=== PATIENT | female | born 1975 | race Caucasian/White ===

== ENCOUNTER 2021-04-30 09:59 | Emergency (ER) | payer OTHER, SELFPAY ==
[2021-04-30 10:09] VITALS: BP 95/50; PULSE 90; RESP 17; TEMP 36.6; O2SAT 99
--- NOTE | 2021-04-30 11:41 | ED.FEMALEGU ---
HPI - Female Genitourinary General Chief complaint: Abdominal Pain Stated complaint: abd pain Time Seen by Provider: 04/30/21 11:41 Source: patient Mode of arrival: ambulatory Limitations: no limitations History of Present Illness HPI Narrative: Ally Sahu is a 45 yo female who comes to express care with lower abdominal pain, R flank -discomfort. She states that her nephew this last week and so things been stressful she has been eating and now she finds it difficult to eat. she is constipated and has had no nausea vomiting or diarrhea, no fever Related Data Home Medications Medication Instructions Recorded Confirmed alprazolam 1 mg PO BID PRN 04/30/21 04/30/21 Allergies Allergy/AdvReac Type Severity Reaction Status Date / Time No Known Allergies Allergy Verified 04/30/21 10:33 Review of Systems Review of Systems: Narrative: CONSTITUTIONAL: Denies fever, chills, sweats. EYES: Denies visual changes, redness, discharge. ENT: Denies rhinorrhea, congestion, sore throat, otalgia. CARDIOVASCULAR: Denies chest pain, palpitations, edema. RESPIRATORY: Denies dyspnea, wheezing, cough GASTROINTESTINAL: Denies abdominal pain, nausea, vomiting, diarrhea. Right flank pain GENITOURINARY: Denies dysuria, hematuria, abnormal discharge SKIN: Denies rash or itching. NEUROLOGIC: Denies numbness, or focal weakness. PSYCHIATRIC: Denies anxiety or depression. [facility] Family History Family History Other Heart disease Social History Social History Smoking status: Former smoker Alcohol intake: current Exam Narrative: Exam Narrative: GENERAL: This is a well-nourished, well-developed patient, in mild distress. HEAD: normocephalic, atraumatic. EYES: Sclera clear/white. Vision is grossly intact. EARS: External ears normal, . Hearing grossly intact. NOSE: External nose normal without nasal discharge, nares without redness, no rhinorrhea. THROAT: Mucous membranes moist, NECK: Neck supple, non-tender CARDIOVASCULAR: Regular rate and rhythm without murmurs, gallops, or rubs. RESPIRATORY: Clear to auscultation. Breath sounds equal bilaterally. No wheezes, rales, or rhonchi. GASTROINTESTINAL: Abdomen soft, SKIN: warm, intact with no suspicious lesions or rash, good texture and turgor. NEURO: awake, alert, and oriented to person, place and time. There were no obvious focal neurologic abnormalities. Steady gait EXTREMITIES: Normal range of motion. BACK: Nontender without deformity Course Course Emergency Course: Patient comes to [facility] with right flank pain and also lower abdominal pain although she admits that she is constipated x1 week and has been unable to eat due to nephew's and has been drinking milk supplements Started on Colace and single dose of MiraLAX for constipation UA dipstick showed 1+ leukocytes and blood started on cephalexin. Told that if she develops nausea vomiting diarrhea and fever she is to go to the emergency room for further work-up as his symptoms could also be other diagnoses Vital Signs Vital signs: Vital Signs Temperature 97.9 F 04/30/21 10:09 Pulse Rate 90 04/30/21 10:09 Respiratory Rate 17 04/30/21 10:09 Blood Pressure 95/50 L 04/30/21 10:09 Pulse Oximetry 99 04/30/21 10:09 Temperature 97.9 F 04/30/21 10:09 Pulse Rate 90 04/30/21 10:09 Respiratory Rate 17 04/30/21 10:09 Blood Pressure 101/62 04/30/21 12:30 Pulse Oximetry 99 04/30/21 10:09 MDM - Female Genitourinary Differential Diagnosis Differential diagnosis: Likely urinary tract infection, cervicitis, vaginitis, cystitis and other (Right flank pain) Lab Data Labs: Urine Glucose Negative Reference Range: Negative Urine Bilirubin Negative Reference
[2021-04-30 12:30] VITALS: BP 101/62
== END 2021-04-30 12:32 | disposition home or self-care (01) ==
PROVIDERS: Emergency Provider Nurse Practitioner
DX: N30.01 Acute cystitis with hematuria (principal); K59.00 Constipation, unspecified
CPT/HCPCS: 81003; 87077; 87086; 87088; 87186; 99213; G0463

== ENCOUNTER 2021-10-22 10:18 | Outpatient (CLI) | payer BC, SELFPAY ==
--- NOTE | ~2021-10-22 | MR_ITS ---
EXAMINATION: MR cervical spine wo con EXAM DATE: 10/22/2021 11:31 INDICATION: Cervical radiculopathy, chronic neck pain. Bilateral arm pain. TECHNIQUE: Multi-sequential, multiplanar MR images of the cervical spine were obtained without contra st. Axial T2, axial T2 MERGE sequence. Sagittal T1, T2, T2 fat saturation images also obtained. Th ere is no prior study for comparison. FINDINGS: There is moderate loss of the C5-6 disc height, mild at the 2 contiguous levels. The spina l cord signal intensity and intrinsic morphology is normal. Cervicomedullary junction is normal in ap pearance. The vertebral bodies are aligned in the AP dimension. There are no suspicious marrow signal abnormalities. Paraspinal soft tissue is unremarkable. Level by level evaluation: C2-C3: Disc does not extend beyond the endplate margin. Uncovertebral joint arthropathy: None. Facet joint arthropathy: Mild bilateral. Neural foraminal stenosis: No stenosis. Central canal stenosis: No stenosis. C3-C4: Disc does not extend beyond the endplate margin. Uncovertebral joint arthropathy: Mild left. Facet joint arthropathy: Mild bilateral. Neural foraminal stenosis: No stenosis. Central canal stenosis: No stenosis. C4-C5: There is a minimal diffuse disc bulge. Uncovertebral joint arthropathy: Mild to moderate bilateral. Facet joint arthropathy: Mild bilateral. Neural foraminal stenosis: Mild to moderate right, mild left. Central canal stenosis: No stenosis. C5-C6: There is a mild diffuse disc bulge. Uncovertebral joint arthropathy: Moderate bilateral. Facet joint arthropathy: Mild to moderate bilateral. Neural foraminal stenosis: Moderate left, mild right. Central canal stenosis: No stenosis. C6-C7: There is a minimal diffuse disc bulge. Uncovertebral joint arthropathy: Mild to moderate bilateral. Facet joint arthropathy: Mild bilateral. Neural foraminal stenosis: Mild left. Central canal stenosis: No stenosis. C7-T1: Disc does not extend beyond the endplate margin. Uncovertebral joint arthropathy: None. Facet joint arthropathy: None. Neural foraminal stenosis: No stenosis. Central canal stenosis: No stenosis. IMPRESSION: 1. Mild to moderate midcervical spondylosis. Reviewed, dictated and finalized at location A. TER MANAGER
--- NOTE | ~2021-10-22 | MR_ITS ---
EXAMINATION: MR lumbar spine wo con EXAM DATE: 10/22/2021 11:31 INDICATION: Lumbar radiculopathy . Chronic low back pain. TECHNIQUE: Multi-sequential, multiplanar MR images of the lumbar spine were obtained without contrast . Sagittal T1, T2, T2 fat saturation images. Axial T2 weighted images. There is no prior study for comparison. FINDINGS: There is mild to moderate disc disease L2-L4, mild at the other thoracolumbar levels. The c onus medullaris terminates at the L1-2 level and has normal signal intensity and morphology. There a re no suspicious marrow signal abnormalities. There is 2 mm retrolisthesis L2 on L3, L3 on L4 and L4 on L5. Paraspinal soft tissue is unremarkable. Level by level evaluation: T12-L1: Disc does not extend beyond the endplate margin. Facet arthropathy: None. Neural foraminal stenosis: No stenosis. Central canal stenosis: No stenosis. L1-L2: Disc does not extend beyond the endplate margin. Facet arthropathy: Mild. Neural foraminal stenosis: No stenosis. Central canal stenosis: No stenosis. L2-L3: There is a mild diffuse disc bulge. Facet arthropathy: Mild. Neural foraminal stenosis: No stenosis. Central canal stenosis: No stenosis. L3-L4: There is a mild diffuse disc bulge. Facet arthropathy: Mild. Neural foraminal stenosis: No stenosis. Central canal stenosis: No stenosis. L4-L5: There is a mild diffuse disc bulge. Facet arthropathy: Mild to moderate. Neural foraminal stenosis: Mild to moderate right, mild left. Central canal stenosis: No stenosis. L5-S1: There is a mild diffuse disc bulge. Facet arthropathy: Mild to moderate. Neural foraminal stenosis: Mild bilateral. Central canal stenosis: No stenosis. IMPRESSION: 1. Mild to moderate lumbar spondylosis. Reviewed, dictated and finalized at location A. ATIC AGENT
== END 2021-10-22 10:19 ==
PROVIDERS: Visit Provider Nurse Practitioner Adult Health
DX: M47.23 Other spondylosis with radiculopathy, cervicothoracic region (principal); M48.03 Spinal stenosis, cervicothoracic region; M47.25 Other spondylosis with radiculopathy, thoracolumbar region; M48.05 Spinal stenosis, thoracolumbar region
CPT/HCPCS: 72141; 72148

== ENCOUNTER 2023-05-05 12:37 | Outpatient (CLI) | payer BC, OTHER, SELFPAY ==
[2023-05-05 14:45] LABS: Thyroid Stimulating Hormone 0.816 uIU/mL (0.465-4.680)
[2023-05-09 17:16] LABS: FSH 5.6 mIU/mL (***)
[2023-05-11 20:12] LABS: Estradiol, Ultrasensitive 92 pg/mL
== END 2023-05-05 12:38 | disposition home or self-care (01) ==
PROVIDERS: Visit Provider Student in an Organized Health Care Education/Training Program
DX: N91.2 Amenorrhea, unspecified (principal)
CPT/HCPCS: 36415; 82670; 83001; 84443

== ENCOUNTER 2023-10-05 08:05 | Emergency (ER) | payer BC, OTHER, SELFPAY ==
--- NOTE | ~2023-10-05 | XR_ITS ---
XR knee RT min 4V 10/05/2023 10:50 INDICATION: Right knee pain and swelling PROCEDURE: 4 views right knee COMPARISON: No prior studies for comparison. FINDINGS: Fracture, dislocation or subluxation is not identified. Moderate joint effusion. The soft t issues appear within normal limits. No foreign bodies are identified. IMPRESSION: 1: No acute fracture. 2: Moderate effusion. Reviewed, dictated and finalized at location B. OR SVP
--- NOTE | ~2023-10-05 | US_ITS ---
EXAMINATION: US venous doppler LE RT DATE: 10/05/2023 10:18 INDICATION: Right calf pain and edema. TECHNIQUE: Grayscale ultrasound images without and with compression and Doppler ultrasound images of the right lower extremity veins were obtained. COMPARISON: None. FINDINGS: The visualized portions of right common femoral vein, profunda (deep) femoral vein, femoral vein, pop liteal vein, peroneal veins, posterior tibial veins, and greater saphenous vein outflow are patent. IMPRESSION: 1. No deep venous thrombosis. Reviewed, dictated and finalized at location E. ORM MAKER
[2023-10-05 08:07] VITALS: BP 122/66; PULSE 98; RESP 16; TEMP 36.6; O2SAT 98
--- NOTE | 2023-10-05 09:35 | ED.LOWEXIN ---
HPI - Extremity Injury (Lower) General Chief Complaint: Extremity Injury, Lower Stated Complaint: right knee injury Time Seen by Provider: 10/05/23 10:07 Source: patient Mode of arrival: wheelchair Limitations: no limitations History of Present Illness HPI Narrative: This is a 48 year old female that presents to the ER for right knee pain. Ongoing over the last month. Reports she has injured it twice. Originally she had fallen right onto her knee cap. The second injury she missed a step and stepped down onto it real hard. Reports worsening swelling which prompted her to be seen. Denies decreased ROM or numbness. Related Data Allergies Allergy/AdvReac Type Severity Reaction Status Date / Time No Known Allergies Allergy Verified 10/05/23 08:10 Review of Systems Review of Systems: CONSTITUTIONAL: Denies fever MUSCULOSKELETAL: Reports joint pain, and myalgia. NEUROLOGIC: Denies numbness, or weakness. All systems reviewed & are unremarkable except as noted in HPI and below PMFSH Past Medical History Medical History Anxiety Screening for breast cancer Surgical History Surgical History H/O tubal ligation History of bunionectomy Family History Family History Grandparent Heart disease Father Hypertension Social History Social History Smoking status: Former smoker Alcohol intake: current Substance use: never Lack of Transportation: No Lack of Food: Never True Current Housing: I Have Housing Concerned About Future Housing: No Difficulty Paying Gas/Electric Bills: No Difficulty Paying for Meds: No Currently Unemployed: No Education: High School Diploma/GED Difficulty w/ Childcare or Family Care: No Living arrangements: other Additional living arrangements comments: , children and mother Occupation/Education: occupation Gender identity (if verbalized by the patient): Female Sexual Orientation (if Verbalized by the Patient): Straight or Heterosexual Exam Narrative: GENERAL: Well-appearing, well-nourished, and in no acute distress. HEAD: Normocephalic, atraumatic. EYES: EOMI. CHEST: No respiratory distress. HEART: Regular rate EXTREMITIES: Normal range of motion. Mild edema about the right knee anteriorly and into the lower leg. No erythema or warmth. Normal DP pulse. Normal sensation SKIN: Warm, dry, no rash. NEURO: No focal deficits. Alert and oriented x3. PSYCH: Normal mood and affect Course Course Emergency Course: Patient and family updated on workup and agree with plan of care Vital Signs Vital signs: Vital Signs Temperature 97.8 F 10/05/23 08:07 Pulse Rate 98 10/05/23 08:07 Respiratory Rate 16 10/05/23 08:07 Blood Pressure 122/66 10/05/23 08:07 Pulse Oximetry 98 10/05/23 08:07 Oxygen Delivery Room Air 10/05/23 08:07 Temperature 97.8 F 10/05/23 08:07 Pulse Rate 98 10/05/23 08:07 Respiratory Rate 16 10/05/23 08:07 Blood Pressure 122/66 10/05/23 08:07 Pulse Oximetry 98 10/05/23 08:07 Oxygen Delivery Room Air 10/05/23 08:07 Procedures Orthopedic Splinting/Casting Injury #1: Splinting/Casting Date: 10/05/23 Splinting/Casting Time: 11:04 Side: right Lower Extremity Injury Location: knee Lower Extremity Immobilizer: knee immobilizer Splint: prefabricated Pre-Formed: knee immobilizer Pre-Procedure Neuro Vascular Exam: normal Post-Procedure Neuro Vascular Exam: normal Other Orthopedic Equipment: crutches MDM - Extremity Injury (Lower) MDM Narrative Medical decision making narrative: MSE performed by DELL in triage Patient presents to the emergency department for right knee pain ongoing over the last beti
== END 2023-10-05 11:29 | disposition home or self-care (01) ==
PROVIDERS: Emergency Provider Physician Assistant
DX: M23.91 Unspecified internal derangement of right knee (principal); W19.XXXA Unspecified fall, initial encounter; Z87.891 Personal history of nicotine dependence
CPT/HCPCS: 73564; 93971; 99284

== ENCOUNTER 2024-04-30 13:39 | Outpatient (CLI) | payer BC, OTHER, SELFPAY ==
--- NOTE | 2024-04-30 15:46 | ECG_ITS ---
Test Date: 2024-04-30 16:02:55 Measurements Intervals [place] Rate: 68 P: 40 ID: [id number] QRS: 21 QRSD: 88 T: 13 QT: 429 QTc: 459 Interpretive Statements SINUS RHYTHM CANNOT R/O SEPTAL INFARCT, AGE INDETERMINATE BORDERLINE ST-T WAVE ABNORMALITY- INFERIOR LEADS BASELINE ARTIFACT- I, II, III, AVR, AVL, AVF ABNORMAL ECG No previous ECG available for comparison Electronically Signed On 04-30-2024 16:56:49 CDT by Antoine Carter D.O.
[2024-04-30 16:20] LABS: Basophils Absolute Auto 0.1 K/mm3 (0.0-0.1); Basophils Percent Auto 0.9 % (0.2-1.2); Eosinophils Absolute Auto 0.2 K/mm3 (0-0.3); Eosinophils Percent Auto 2.7 % (0-4.4); Hematocrit 39.5 % (37.0-47.0); Immature Granulocyte Absolute 0.02 K/mm3 (0.00-0.031); Immature Granulocyte Percent A 0.3 % (0-0.5); Lymphocytes Absolute Auto 2.56 K/mm3 (0.9-3.2); Lymphocytes Percent Auto 36.6 % (18.3-44.2); Mean Corpuscular HGB Conc 32.9 g/dl (32-36); Mean Platelet Volume 10.4 fl (7.4-10.4); Monocytes Absolute Auto 0.8 K/mm3 (0.1-0.6); Monocytes Percent Auto 10.7 % (2.6-8.5); Neutrophils Absolute Auto 3.4 K/mm3 (1.3-6.7); Neutrophils Percent Auto 48.8 % (45.5-73.1); Platelet Count Result 352 k/mm3 (150-375); Red Cell Distribution Width 13.9 % (11.5-14.5)
[2024-04-30 16:27] LABS: Appearance Urine Clear (Clear); Bacteria Urine None Seen /hpf; Bilirubin Urine Negative (Negative); Blood Urine 2+ (Negative); Color Urine Yellow (Yellow); Glucose Urine UA Negative (Negative); Ketones Urine Negative (Negative); Leukocyte Esterase Ur Negative LEU/UL (Negative); Nitrate Urine Negative (Negative); Non Pathogenic Casts 0-2; Protein Urine Negative (Negative); RBC Urine 0-2 /hpf (0-2); Specific Grav Ur 1.007 (1.001-1.035); Squamous Epithelial Cell Urine None Seen /hpf (Few); Urobilinogen Urine 0.2 mg/dL (<2.0); WBC Urine 0-5 /hpf (0-3)
[2024-04-30 16:30] LABS: Urine Cotinine NEGATIVE
[2024-04-30 16:31] LABS: Alanine Aminotransferase 22 U/L (6-35); Albumin Level 4.7 g/dL (3.5-5.1); Alkaline Phosphatase 66 U/L (38-126); Anion Gap 8 mmol/L (4-12); Aspartate Amino Transferase 27 U/L (14-36); Bilirubin,Total 0.4 mg/dL (0.2-1.3); Blood Urea Nitrogen 10 mg/dL (7-17); Calcium 9.3 mg/dL (8.4-10.2); Carbon Dioxide 29 mmol/L (22-30); Chloride 100 mmol/L (98-107); Estimated Glomerular Filt Rate > 60; Glucose 82 mg/dL (65-110); Potassium 3.7 mmol/L (3.4-5.0); Sodium 137 mmol/L (137-145)
[2024-04-30 16:45] LABS: Hemoglobin A1C 5.4 % (<5.7)
[2024-04-30 16:47] LABS: Add Urine Microscopic? YES
== END 2024-04-30 13:40 | disposition home or self-care (01) ==
LOC: ANHSURGERY 13:48
PROVIDERS: PCP Registered Nurse; Visit Provider Orthopaedic Surgery
DX: Z01.818 Encounter for other preprocedural examination (principal); M16.12 Unilateral primary osteoarthritis, left hip; R94.31 Abnormal electrocardiogram [ECG] [EKG]; Z79.899 Other long term (current) drug therapy
CPT/HCPCS: 36415; 80053; 80307; 81001; 83036; 85025; 87081; 93005

== ENCOUNTER 2024-05-03 08:47 | Outpatient (CLI) | payer BC, OTHER, SELFPAY ==
[2024-05-03 10:19] LABS: Cholesterol 197 mg/dL (0-200); HDL Direct 63 mg/dL; Triglycerides 114 mg/dL (<150)
[2024-05-03 10:30] LABS: LDL Cholesterol Direct 93 mg/dL
[2024-05-03 11:01] LABS: Vitamin D 25 Hydroxy 37.7 ng/mL
[2024-05-05 11:04] LABS: TSH QUEST 1.69 mIU/L
== END 2024-05-03 08:48 | disposition home or self-care (01) ==
PROVIDERS: PCP Registered Nurse; Visit Provider Registered Nurse
DX: Z79.899 Other long term (current) drug therapy (principal)
CPT/HCPCS: 36415; 80061; 82306; 84481; 86376

== ENCOUNTER 2024-05-22 01:47 | Day surgery (SDC) | payer BC, OTHER, SELFPAY ==
[2024-04-30 14:05] VITALS: BMI 29.2
--- NOTE | 2024-04-30 14:39 | PC.NURSE ---
Report to the Outpatient Waiting Room, entrance under the green pavilion located off [facility], at time __6:00 AM on date _05/22/24 . Planned Procedure Time: _7:30 AM . Time changes happen often and if your time is changed the preop area will call you the afternoon before. - You and your visitor will be asked to self-screen and do not enter if you have any COVID symptoms. - A mask is optional within the hospital at this time. Patients may have clear liquids (water, carbonated beverages, clear teas, apple juice) until 3 hours prior to surgery ( 4:30 AM)with a maximum of 20 ounces. - No food from midnight until time of surgery - Infants may have breast milk until 4 hours before surgery, infant formula 6 hours prior to surgery. - Children will be allowed to drink immediately following surgery. If applicable, please bring a bottle or sippy cup to assist with drinking. Juice, water, soda, and popsicles are readily available. For infants on formula, please bring formula the day of surgery. Pacifiers are allowed. Take the following medications with a SIP of water the morning of surgery: __NONE DO NOT STOP ANY OF YOUR OTHER PRESCRIPTION MEDICATIONS PRIOR TO SURGERY ?EXCEPT THE FOLLOWING Medications to discontinue per physician __HOLD DICLOFENAC , IBUPROFEN AND ALL VITAMINS AND SUPPLEMENTS 7 DAYS PRE OP PER DR DAVIS .LAST DOSE 05/14/24 MAY TAKE TYLENOL IF NEEDED FOR PAIN Please no make-up, nail kinyarwanda, hairspray, perfume, deodorant, or body powder the day of surgery. No jewelry (including any body piercings) or valuables the day of surgery, leave them at home. Please take a shower or bath the night before, or the morning of, surgery with an antibacterial soap. Wear comfortable, loose fitting clothing. Children are encouraged to wear pajamas. - Jewelry must be removed prior to entering the operating room. Rings and piercings that are not removed may be cut off. - The hospital will not accept responsibility for valuables. - Please leave all valuables, including medications, at home the day of surgery. If you are going home after surgery, a licensed automation driver must drive you home. - NO public transportation without another adult if you receive anesthesia. - We recommend that an adult stay with you for 24 hours following discharge. - We also recommend that you do not drive, make important decision, drink alcoholic beverages, or take any drugs that were not prescribed by your health care provider for at least 24 hours after your discharge time. Follow any additional instructions given to you from your surgeon. If you or anyone in your household have experienced Covid symptoms in the past week, please notify your surgeon or the nurse liaison at the phone number below for possible testing. VERBAL AND WRITTEN instructions given to ____PATIENT and asked if any additional questions and then verbalized understanding. Patient advised to call surgeon office or pre surgery nurse liaison [phone] if any additional questions.
[2024-04-30 15:32] VITALS: BP 123/80; PULSE 65; RESP 18; TEMP 36.6; O2SAT 98
--- NOTE | 2024-05-21 08:01 | PM.IMHP ---
H&P: HPI History of Present Illness Date/Time: 05/21/24 08:01 Chief Complaint: Left hip DJD Narrative: 48-year-old female who presents today for a left anterior total hip arthroplasty. Patient has been having symptoms for several years in both of her hips. The pain in the left hip is predominantly in the lateral aspect of the hip and also through the groin. She has difficulty bearing weight on the leg at times. By the end of the day she is having rather severe pain in both of her hips. She has been on diclofenac 75 mg b.i.d.. Patient has severe osteoarthritis in both hips, the left hip there is flattening of the femoral head. At this point patient feels she is ready proceed with total hip arthroplasty rather than continue nonsurgical treatment Review of Systems Review of Systems: All systems reviewed & are unremarkable except as noted in HPI and below PMFSH Past Medical History Medical History Anxiety Screening for breast cancer Surgical History Surgical History H/O tubal ligation History of bunionectomy Family History Family History Grandparent Heart disease Father Hypertension Diabetes mellitus Heart disease Social History Social History (Updated 04/02/24 @ 15:38 by Belkis Serrano CMA) Smoking packs per day: 1 Smoking cigarettes per day: 20.0 Years smoked: 25 Smoking pack-years: 25.00 Smoking status: Former smoker Tobacco type: cigarettes Smoking end date: 10/10/15 Additional smoking assessment comments: DENIES ANY FORM OF TOBACCO USE Alcohol intake: current Drinks per week: 8 Alcohol use details: occasionally Substance use: never Do You Feel Safe in your Home?: Yes Lack of Transportation: No Lack of Food: Never True Current Housing: I Have Housing Concerned About Future Housing: No Difficulty Paying Gas/Electric Bills: No Difficulty Paying for Meds: No Currently Unemployed: No Education: High School Diploma/GED Difficulty w/ Childcare or Family Care: No Living arrangements: with family Additional living arrangements comments: , children and mother Occupation/Education: occupation 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 Gender identity (if verbalized by the patient): Female Sexual Orientation (if Verbalized by the Patient): Straight or Heterosexual Spiritual care concerns: No Meds Home Medications and Allergies Home Medications Medication Instructions Recorded Confirmed Type ibuprofen 200 mg capsule 400 mg PO Q6H PRN Pain 02/06/24 04/30/24 History acetaminophen 325 mg capsule 325 mg PO PRN PRN Pain 04/30/24 04/30/24 History (Tylenol) diclofenac sodium 75 mg 75 mg PO BID 04/30/24 04/30/24 History tablet,delayed release multivitamin with minerals 1 tablet PO DAILY 04/30/24 04/30/24 History (Hair,Skin and Nails tablet) Allergies Allergy/AdvReac Type Severity Reaction Status Date / Time morphine Allergy Vomiting Verified 04/30/24 14:06 Exam Narrative: 48-year-old female she is 5 ft 2 and 159 lb her BMI is 29.2. Her left hip range of motion is from 0-75 degrees. At 75? she has moderate pain across the groin and upper thigh. Internal rotation lacks 10? from neutral and external rotation is to 30. Internal rotation cause the same moderate pain across the groin and anterior thigh. She has normal abduction strength and no tenderness over the greater trochanter. 2+ dorsalis pedis pulse in both feet. No increased swelling in either lower extremity. Skin around the hip and groin crease are normal. Resp: Auscultation: clear to auscultation bilaterally Cardio: Rate: regular rate Rhythm: regular rhythm Assessment and Plan Assessment and plan (1) Primary osteoarthritis of both hips: Code(s):
[2024-05-22] VITALS (13 sets, daily range): BP systolic 99–120; BP diastolic 47–97; PULSE 69–104; RESP 12–18; TEMP 35.6–36.8; O2SAT 94–100
--- NOTE | ~2024-05-22 | XR_ITS ---
EXAMINATION: XR hip LT 1V w AP pelvis DATE: 05/22/2024 11:34 INDICATION: Left hip arthroplasty. Postop. TECHNIQUE: An anteroposterior view of the pelvis and single view of left hip were obtained. COMPARISON: Pelvis and hip radiograph 04/02/2024 FINDINGS: There is a total left hip arthroplasty in near-anatomic alignment. No fracture. 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 There is severe right hip osteoarthritis. IMPRESSION: 1. Total left hip arthroplasty in near-anatomic alignment. 2. Severe right hip osteoarthritis. Reviewed, dictated and finalized at location A.
--- NOTE | ~2024-05-22 | XR_ITS ---
EXAMINATION: XR surgery orthopedic DATE: 05/22/2024 11:34 INDICATION: Left total hip arthroplasty TECHNIQUE: Single frontal fluoroscopic image of the left hip was obtained during procedure performed by Dr. Osborn. Radiologist was not present for the imaging or procedure. The amount of fluoroscopy t laith used during this procedure was 1.0 minutes. COMPARISON: 04/02/2024 FINDINGS: Interval placement of a noncemented left total hip arthroplasty which appears well seated in near-erna tomic alignment on the single provided projection. No fracture. The acetabular component is affixed w ith at least a single screw. Expected lucent soft tissue gas at the operative bed. IMPRESSION: 1. Expected appearance during left total hip arthroplasty. See procedure note for further detail. Reviewed, dictated and finalized at location A. IMPRESSION: 1. Expected appearance during left total hip arthroplasty. See procedure note f or further detail.
[2024-05-22] MEDS: LACTATED RINGERS 1,000 ML 30 ML IV CONT ×3 (06:30→11:35)
[2024-05-22] MEDS: ACETAMINOPHEN 500 MG TABLET 1000 MG PO (06:35)
[2024-05-22] MEDS: TRANEXAMIC ACID 1,000MG/ISO100 1,000 MG/100 ML BAG 200 MG IVPB (06:36)
[2024-05-22] MEDS: VANCOMYCIN 1,250 MG/NS 250 ML BAG 166.67 MG IVPB (06:37)
--- NOTE | 2024-05-22 06:47 | WPDANESEPPF ---
Anes - Initial Pre Proc Eval Procedure: Operation Date: 05/22/24 07:30 Proposed Procedures p Left Total Hip Arthroplasty Anterior Approach - Dexter Osborn MD Date/Time: 05/22/24 06:47 Surgeon: Dexter Osborn MD Pre Op Diagnosis: oa left hip Patient Data Age: 48 Gender: F Height: 1.59 m Weight: 73.7 kg Last Vital Signs Temp 97.8 F 04/30/24 15:32 Pulse 65 04/30/24 15:32 Resp 18 04/30/24 15:32 BP 123/80 04/30/24 15:32 Pulse Ox 98 04/30/24 15:32 O2 Del Method Room Air 04/30/24 15:32 Allergies Allergy/AdvReac Type Severity Reaction Status Date / Time morphine Allergy Vomiting Verified 04/30/24 14:06 Home Medications Medication Instructions Recorded Confirmed Type ibuprofen 200 mg capsule 400 mg PO Q6H PRN Pain 02/06/24 04/30/24 History acetaminophen 325 mg capsule 325 mg PO PRN PRN Pain 04/30/24 04/30/24 History (Tylenol) diclofenac sodium 75 mg 75 mg PO BID 04/30/24 04/30/24 History tablet,delayed release multivitamin with minerals 1 tablet PO DAILY 04/30/24 04/30/24 History (Hair,Skin and Nails tablet) Laboratory Tests 05/22/24 06:23 Blood Type Pending Antibody Screen Pending Patient hx anesthesia problems: none Family hx anesthesia problems: none Results Review: All pre-operative results and documents have been reviewed as part of the pre-operative evaluation. [facility] Past Medical History Medical History Anxiety Screening for breast cancer Surgical History Surgical History H/O tubal ligation History of bunionectomy Family History Family History Grandparent Heart disease Father Hypertension Diabetes mellitus Heart disease Social History Social History Smoking packs per day: 1 Smoking cigarettes per day: 20.0 Years smoked: 25 Smoking pack-years: 25.00 Smoking status: Former smoker Tobacco type: cigarettes Smoking end date: 10/10/15 Additional smoking assessment comments: DENIES ANY FORM OF TOBACCO USE Alcohol intake: current Drinks per week: 8 Alcohol use details: occasionally Substance use: never Do You Feel Safe in your Home?: Yes Lack of Transportation: No Lack of Food: Never True Current Housing: I Have Housing Concerned About Future Housing: No Difficulty Paying Gas/Electric Bills: No Difficulty Paying for Meds: No Currently Unemployed: No Education: High School Diploma/GED Difficulty w/ Childcare or Family Care: No Living arrangements: with family Additional living arrangements comments: , children and mother Occupation/Education: occupation 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 ) Neurological: alert and oriented Last oral intake: >/= 8 hours ASA classification: II Emergent: no Anesthetic plan: proceed Anesthesia type and monitoring: general ETT and standard monitoring Results Review: All pre-operative results and documents have been reviewed as part of the pre-operative evaluation. Anxiety, ex smoker, by hx. Informed Consent: The patient's anesthetic plan and its attendant risks and benefits were discussed with the patient/family/POA. Questions were solicited and answers provided to the satisfaction of the patient/family/POA.
--- NOTE | 2024-05-22 07:15 | WPDHPUPDATE1 ---
History and Physical Update Update Date/Time: 05/22/24 07:15 History and Physical has been reviewed, including an updated exam of the patient. There are NO changes in the patient's condition. Risks, benefits, and alternatives have been discussed and questions answered. Patient agrees to proceed with procedure.
[2024-05-22] MEDS: SODIUM CHLORIDE 0.9% IV 38.7 ML, ROPivacaine HCL 1% 200 MG, KETOROLAC INJ (*BKC) 15 MG,... INFILTRATE (07:18)
[2024-05-22] MEDS: ceFAZolin SODIUM 1 GM VIAL 3 GM (07:18)
--- NOTE | 2024-05-22 07:25 | WPDHPUPDATE1 ---
History and Physical Update Update Date/Time: 05/22/24 07:25 We discussed that sometimes her right hip hurts more than her right, which includes pain right lower back and buttock and ant. lat right hip pain kathleen laying in bed. I do believe that her LPP and buttock pain is from her lower back which will not be addressed with hip replacement. I reviewed with her that she has bone on bone oa right hip as well which can be replaced 3 months from now and we can switch the order and do the right hip today instead of her left. She notes more pain with ROM left hip and xrays show oa left hip more advanced. She has decided to stay with plan to proceed with left JASPAL today and likely right hip JASPAL in 3 months.
[2024-05-22] MEDS: ceFAZolin 2 GM/D5W 50 ML 2 GM/50 ML BAG IVPB ×3 (07:46→22:59)
[2024-05-22] MEDS: TRANEXAMIC ACID 1,000 MG/10 ML AMPUL 1000 MG IV PUSH (10:59)
[2024-05-22] MEDS: ceFAZolin SODIUM 1 GM VIAL 2 GM IV PUSH (11:07)
[2024-05-22] MEDS: KETOROLAC 15 MG/ML VIAL (*BKC) IV PUSH ×3 (11:10→23:00)
--- NOTE | 2024-05-22 11:35 | W.PM.PROC2 ---
Procedure Note - Detailed Date of Procedure 05/22/24 Pre-op Diagnosis oa left hip Post-op Diagnosis Same Procedure Performed Left total hip arthroplasty Surgeon Dexter Osborn MD [employer] Safety [employer] [facility] Anesthesia General Description of Procedure Patient was brought to the operating room and general anesthesia was administered. She received 2 g of Ancef weight based vancomycin 1 g of tranexamic acid preoperatively. We did look at the right hip with an AP fluoro picture and it was unchanged compared with x-rays from March of 2024. The left hip was prepped draped usual fashion. A 10 cm longitudinal incision was made starting 3 cm lateral to the ASIS. Dissection was carried down to the fascia over the tensor fascia shahid which was exposed and longitudinally incised. This was elevated off the anterior 1/2 of the TFL muscle in interval between TFL and rectus femoris developed. Crossing branches of ascending lateral femoral circumflex vessels were ligated with suture divided. A retractor was placed over the anterior capsule the hip abducted internally rotated the gluteus minimus elevated off the lateral capsule. Inverted T capsulotomy was performed. Femoral neck osteotomy was performed and the femoral head was removed. It measured about 44 mm diameter. Had a very large peripheral osteophyte. The acetabulum was exposed labrum excised. The acetabular fossa was completely overgrown with osteophyte. Remaining cartilage from the anterior acetabulum wall was curetted. X-rays show that we could resect a little bit more bone from the femoral neck which was performed. We medialized with a 42 mm Reamer to the medial wall which allowed us to debride the fat pad from the acetabular fossa and we reamed up to 45 mm and then 246 mm which gave flesh reaming periphery of the posterior wall and anterior wall at the equator and the 46 trial was snug. Fluoro was utilized to assist with the acetabular preparation. Bone quality was very good. We chose the 46 emphasis Depuy cup which was impacted at 40? of abduction and anteversion such as the anterior edge of the cup was just to the anterior rim of the acetabulum. Excellent Press-Fit was achieved. A single screw was placed the ilium. Thirty-two inner diameter polyethylene liner was placed without difficulty and fully seated. The leg was externally rotated extended with table hook in place and this did not give us optimal exposure due to her very short femoral neck and the interval between conjoined tendon and piriformis was incised allowing the piriformis to flip and the conjoined tendon to recess. This gave us enough exposure. The proximal femur was prepared broaching up to a size 4. We countersunk this 2 level of the saddle laterally and trialed. With the 0.5 it was too tight with a 1.5 it was just a tiny bit tight. We obtained intraoperative fluoro AP pelvis which showed that the position of the broach was just a little higher than her preoperative plan. We could see that her intramedullary canal at the distal tip of the broach was narrow. I felt we could impact the stem broach another few mm and after we calcar planed we impacted the broach 3 more mm. There was excellent torsional stability of the broach in the canal. We trialed again and the 1.5 head ample shock but was stable and the 5 was a bit tight. Final calcar planing was carried out and the size 4 standard offset stem Actis was seated fully. There were no cracks visible. We trialed again with the 1.5 trial 32 mm head and again there was appropriate soft tissue tension and stability. The real ceramic 32 mm head 1.5 length was impacted on the clean and dry trunnion after thorough irrigation of the wound with Ancef solution. Hip was reduced stability reconfirmed. Local anesthetic cocktail was injected. 2. Vicryl was used to approximate the superior aspect of the are capsular arthrotomy. Fascia closed with running 1. Vicryl drain deep in the subcu skin closed with
[2024-05-22] MEDS: fentaNYL CITRATE INJ (*CRX) 100 MCG/2 ML VIAL 25 MCG IV PUSH ×4 (11:42→11:49)
--- NOTE | 2024-05-22 11:42 | PM.OP ---
Procedure Note - Brief Procedure Note - Brief Date of procedure: 05/22/24 oa left hip Procedure performed: Left anterior total hip arthroplasty Surgeon: ZOHRA Dueñas Findings: 48-year-old female who underwent left anterior total hip arthroplasty on 05/22. I was involved in the procedure including positioning the patient on the OR table in 1st assisting through the time surgery. Total time spent was 4 hours
[2024-05-22] MEDS: ONDANSETRON INJ 4 MG/2 ML VIAL IV PUSH ×2 (11:51→13:45)
[2024-05-22] MEDS: ACETAMINOPHEN 325 MG TABLET 650 MG PO ×3 (13:42→22:05)
[2024-05-22] MEDS: oxyCODONE HCL (*CRX) 5 MG TAB IR PO ×3 (13:42→22:05)
[2024-05-22] MEDS: SODIUM CHLORIDE 0.9% IV 1,000 ML 125 ML IV CONT (13:42)
--- NOTE | 2024-05-22 15:46 | ADMGEN ---
This patient, Ally Santos, was admitted to [facility] Surg Room 329-01. Patient/family oriented to hospital policies and general routines including ID bracelet, bed and alarms, visiting hours, pain management, procedures, bathroom and other care routines, personal items, smoking policy, room service/diet, and visiting hours. Information on how to activate the Rapid Response Team has been discussed. Patient/Family are encouraged to report perceived risks to care and to ask questions if they do not understand what they are told or what they should do.
--- NOTE | 2024-05-22 15:55 | PCPTNOTE ---
On 05/22/24, the student, [Karis Cooper], provided care and completed [facility] documentation on this patient. I have reviewed the student's documentation and agree with the findings.
[2024-05-22] MEDS: VANCOMYCIN 1,000 MG/NS 250 ML 1,000 MG/250 ML BAG 250 MG IVPB (17:45)
[2024-05-22] MEDS: SENNA/DOCUSATE SODIUM TABLET 2 TAB PO (17:45)
[2024-05-22] MEDS: FAMOTIDINE 20 MG TABLET PO (20:24)
[2024-05-23] MEDS: oxyCODONE HCL (*CRX) 5 MG TAB IR PO ×3 (02:08→09:09)
[2024-05-23] MEDS: ACETAMINOPHEN 325 MG TABLET 650 MG PO ×3 (02:08→09:09)
[2024-05-23 02:45] VITALS: BP 112/68; PULSE 81; RESP 14; TEMP 36.4; O2SAT 94
[2024-05-23] MEDS: VANCOMYCIN 1,000 MG/NS 250 ML 1,000 MG/250 ML BAG 250 MG IVPB (05:16)
[2024-05-23 05:59] VITALS: BP 106/64; PULSE 91; RESP 13; TEMP 36.5; O2SAT 94
[2024-05-23 06:18] LABS: Basophils Percent Auto 0.3 % (0.2-1.2); Eosinophils Percent Auto 0.1 % (0-4.4); Hemoglobin 8.9 g/dL (12.0-15.0); Immature Granulocyte Absolute 0.04 K/mm3 (0.00-0.031); Immature Granulocyte Percent A 0.4 % (0-0.5); Lymphocytes Absolute Auto 2.44 K/mm3 (0.9-3.2); Lymphocytes Percent Auto 22.5 % (18.3-44.2); Mean Corpuscular HGB Conc 31.8 g/dl (32-36); Mean Corpuscular Hemoglobin 30.5 pg (26-34); Mean Corpuscular Volume 95.9 fl (80-100); Mean Platelet Volume 10.5 fl (7.4-10.4); Monocytes Absolute Auto 1.1 K/mm3 (0.1-0.6); Monocytes Percent Auto 10.1 % (2.6-8.5); Neutrophils Absolute Auto 7.2 K/mm3 (1.3-6.7); Neutrophils Percent Auto 66.6 % (45.5-73.1); Platelet Count Result 221 k/mm3 (150-375); Red Blood Count 2.92 M/mm3 (4.2-5.4); Red Cell Distribution Width 13.6 % (11.5-14.5); White Blood Count 10.9 K/mm3 (4.5-10.0)
[2024-05-23 06:28] LABS: Anion Gap 5 mmol/L (4-12); Blood Urea Nitrogen 10 mg/dL (7-17); Carbon Dioxide 26 mmol/L (22-30); Chloride 105 mmol/L (98-107); Estimated CRCL calculation 92 ml/min; Estimated Glomerular Filt Rate > 60; Glucose 99 mg/dL (65-110); Potassium 3.9 mmol/L (3.4-5.0); Sodium 136 mmol/L (137-145)
--- NOTE | 2024-05-23 07:35 | PM.PNORT ---
Subjective Subjective Date/Time Seen: 05/23/24 07:35 Interval history: Postop day 1 patient is alert. She is afebrile vital signs are stable. Morning labs are noted. Hemoglobin 8.9. Patient is asymptomatic from this. Her drain is out. Dressing is dry and intact pain overall is well controlled. She was up walking yesterday with therapy in to the restroom multiple times overnight. Patient overall is doing well and is anxious to go home today. She will work with Physical therapy this morning and if she continues do well she will be discharged home following that. Objective Data Vital Signs Vital Signs: Vital Signs - 24 hr 05/22/24 11:35 05/22/24 11:45 05/22/24 11:50 Temperature 98.2 F Pulse Rate 104 H 90 Respiratory Rate 12 16 Blood Pressure 119/77 108/86 Pulse Oximetry 100 98 95 Oxygen Delivery Simple Face Mask Room Air Nasal Cannula Oxygen Flow Rate 8 2 05/22/24 12:00 05/22/24 12:15 05/22/24 12:30 Temperature Pulse Rate 87 82 75 Respiratory Rate 12 13 12 Blood Pressure 111/71 99/63 L 120/97 H Pulse Oximetry 95 99 96 Oxygen Delivery Nasal Cannula Nasal Cannula Nasal Cannula Oxygen Flow Rate 2 2 2 05/22/24 12:39 05/22/24 13:15 05/22/24 13:30 Temperature 96.0 F L 96.0 F L Pulse Rate 74 73 89 Respiratory Rate 13 18 16 Blood Pressure 111/73 100/72 102/69 Pulse Oximetry 96 96 98 Oxygen Delivery Nasal Cannula Oxygen Flow Rate 2 05/22/24 14:00 05/22/24 14:40 05/22/24 14:51 Temperature 96.0 F L 96.8 F L Pulse Rate 82 74 Respiratory Rate 16 18 Blood Pressure 111/65 114/58 L Pulse Oximetry 99 96 Oxygen Delivery Room Air Oxygen Flow Rate 05/22/24 16:09 05/22/24 22:15 05/23/24 02:45 Temperature 97.1 F L 97.6 F Pulse Rate 95 81 Respiratory Rate 13 14 Blood Pressure 111/47 L 112/68 Pulse Oximetry 94 94 Oxygen Delivery Room Air Oxygen Flow Rate 05/23/24 05:59 Temperature 97.7 F Pulse Rate 91 Respiratory Rate 13 Blood Pressure 106/64 Pulse Oximetry 94 Oxygen Delivery Oxygen Flow Rate Intake/Output Intake/Output: Intake & Output 08/11/24 08/12/24 08/13/24 08/14/24 23:59 23:59 23:59 23:59 Intake Total 2200 250 Output Total 75 Balance 2200 175 Meds/Results Medications: Active Medications Generic Name Dose Route Start Last Admin Trade Name Freq PRN Reason Stop Dose Admin Acetaminophen 650 mg 05/22/24 14:00 05/23/24 05:16 Acetaminophen 325 Mg Tablet PO 650 mg Q4H ANGELO Administration Apixaban 2.5 mg 05/23/24 09:00 Apixaban 2.5 Mg Tablet PO Q12HR ANGELO Cefdinir 300 mg 05/23/24 09:00 Cefdinir 300 Mg Capsule PO Q12HR ANGELO Celecoxib 200 mg 05/23/24 09:00 Celecoxib 200 Mg Capsule PO DAILY ANGELO Diphenhydramine HCl 25 mg 05/22/24 13:06 Diphenhydramine Hcl Inj 50 Mg/Ml Vial IV PUSH Q6H PRN Itching Famotidine 20 mg 05/22/24 21:00 05/22/24 20:24 Famotidine 20 Mg Tablet PO 20 mg Q12HR ANGELO Administration Hydromorphone HCl 0.5 mg 05/22/24 13:06 Hydromorphone Hcl Inj (*Crx) 1 Mg/Ml Syr IV PUSH Q2H PRN Breakthrough Pain Rated 4-6 or NPO Naloxone HCl 0.1 mg 05/22/24 13:06 Naloxone Hcl 0.4 Mg/Ml Vial IV PUSH Q2M PRN Opiate Reversal Ondansetron HCl 4 mg 05/22/24 13:06 05/22/24 13:45 Ondansetron Inj 4 Mg/2 Ml Vial IV PUSH 4 mg Q4H PRN Administration Nausea And Vomiting Oxycodone HCl 5 mg 05/22/24 14:00 05/23/24 05:16 Oxycodone Hcl (*Crx) 5 Mg Tab Ir PO 5 mg Q4H ANGELO Administration Oxycodone HCl 5 mg 05/22/24 13:06 Oxycodone Hcl (*Crx) 5 Mg Tab Ir PO Q4H PRN Pain Rated 7-10 Polyethylene Glycol 17 gm 05/23/24 09:00 Polyethylene Glycol 3350 17 Gm Powd.Pack PO QAM ANGELO Senna/Docusate Sodium 2 tab 05/22/24 17:00 05/22/24 17:45 Senna/Docusate Sodium Tablet PO 2 tab BID ANGELO Administration Radiology Results: ITS Impressions Hip/Pelvis X-Ray 05/22/24 12:02 IMPRESSION: 1.
[2024-05-23] MEDS: ceFAZolin 2 GM/D5W 50 ML 2 GM/50 ML BAG IVPB (07:39)
--- NOTE | 2024-05-23 08:25 | PM.DS ---
DS: Admitting Diagnosis Discharge Date 05/23 Admitting Diagnosis Left hip DJD DS: Discharge Diagnosis Discharge Diagnosis (1) Primary osteoarthritis of both hips: Code(s): M16.0 - Bilateral primary osteoarthritis of hip Status: Acute DS: Summary Hospital Course Hospital Course: 48-year-old female who underwent left anterior total hip arthroplasty on 05/22. Underwent the procedure without complications. Postoperatively she has been afebrile vital signs stable. Neurovascularly she is intact. She is weight-bearing as tolerated. She was up walking the day of surgery therapy and is comfortable. She is on Eliquis for DVT prophylaxis. She will be on a 10 day course of Celebrex. Pain is well controlled with scheduled Tylenol every 4 hours as well as oxycodone every 4 hours. She will be discharged home on 05/23. She will go home with 1 week course of Omnicef. She will also go home with Senokot and MiraLax for constipation. Patient was advised to keep leg elevated home prevent swelling. Postop day 1 her hemoglobin was 8.9. Patient was asymptomatic from this. Rest of her labs were all within normal limits. Patient was advised any questions or concerns she is to call the office otherwise we will see her at her appointments Time Spent with Patient Time attestation: Total time spent providing and/or coordinating discharge services: DS: Data Data Completed and Pending Labs on day of discharge: Labs from last 24 hours 05/23/24 05/22/24 06:02 06:23 WBC 10.9 H RBC 2.92 L Hgb 8.9 L D Hct 28.0 L MCV 95.9 MCH 30.5 MCHC 31.8 L RDW 13.6 Plt Count 221 MPV 10.5 H Immature Gran % (Auto) 0.4 Neut % (Auto) 66.6 Lymph % (Auto) 22.5 Glascock % (Auto) 10.1 H Eos % (Auto) 0.1 Baso % (Auto) 0.3 Lymph # (Auto) 2.44 Glascock # (Auto) 1.1 H Eos # (Auto) 0.0 Baso # (Auto) 0.0 Abs Immat Gran (auto) 0.04 H Absolute Neuts (auto) 7.2 H Absolute Nucleated RBC 0.000 Nucleated RBC % 0.0 Sodium 136 L Potassium 3.9 Chloride 105 Carbon Dioxide 26 Anion Gap 5 BUN 10 Creatinine 0.60 L Estim Creat Clear Calc 92 Estimated GFR > 60 Glucose 99 Calcium 8.0 L Blood Type O Positive Antibody Screen Negative Discharge Plan Discharge Patient Disposition: Home, Self-Care Discharge Instructions: DEXTER OSBORN M.D [facility] [address] [address] [address] [place] [address] POST-OPERATIVE DISCHARGE INSTRUCTIONS ANTERIOR TOTAL HIP ARTHROPLASTY 1. Move toes/feet up and down every hour while awake. 2. Be up walking every hour while awake. 3. Use walker transfer machine operator if instructed to use walker transfer machine operator.When you are allowed to use the cane, use the cane in the opposite hand. 4. When resting, do not rest in the chair. Rather, lie on your back, with back flat, and the leg elevated above heart to minimize swelling. You may put a pillow under your head. Do not rest in a chair. Resting in the chair results in swelling in the leg. Significant swelling could indicate a blood clot and if this occurs, call the office (or go to the ER) to have a venous ultrasound performed. Its ok to sit in the chair to eat and use the toilet and to receive a guest but sitting in a chair will cause your leg to swell. so try to minimize sitting in a chair. 5. Wound Care: Apply a folded 4x4 sponge to incision and hold with crossing strips of 1 inch Transpore tape. 6. Follow weight bearing status as instructed: 7. May shower. Remove dressing before shower and reapply dressing after shower. Stand Alone Forms: General Discharge Instructions Follow-up/Referrals: Dexter Osborn MD [Physician] - Keep Reg. Scheduled Appt. Discharge Medications: New acetaminophen 325 mg Tablet 650 mg PO Q4H Qty: 90 0RF Eliquis 2.5 mg Tablet 2.5 mg PO Q12HR Qty: 70 0RF celecoxib [Celebrex] 200 mg Capsule 200 mg PO DAILY Qty: 10 0RF poly
[2024-05-23] MEDS: polyethylene glycoL 3350 17 GM POWD.PACK PO (09:06)
[2024-05-23] MEDS: CELECOXIB 200 MG CAPSULE PO (09:07)
[2024-05-23] MEDS: CEFDINIR 300 MG CAPSULE PO (09:07)
[2024-05-23] MEDS: APIXABAN 2.5 MG TABLET PO (09:07)
[2024-05-23] MEDS: SENNA/DOCUSATE SODIUM TABLET 2 TAB PO (09:07)
[2024-05-23] MEDS: FAMOTIDINE 20 MG TABLET PO (09:07)
--- NOTE | 2024-05-26 13:31 | PC.NURSE ---
Patient called with questions regarding discharge medications. All questions answered.
== END 2024-05-23 12:42 | disposition home or self-care (01) ==
LOC: ANHSURGERY 06:01 → ANH3MEDSUR 13:08
PROVIDERS: Physician Assistant Surgical; PCP Registered Nurse; Visit Provider Orthopaedic Surgery
PROC: (CPT 27130; principal; 2024-05-22 07:30)
DX: M16.12 Unilateral primary osteoarthritis, left hip (principal); Z87.891 Personal history of nicotine dependence
CPT/HCPCS: 27130; 36415; 73501; 80048; 85025; 86850; 86900; 86901; 97110; 97116; 97161; 97165; 97530; 97535; 99199; A9270; C1776; J0171; J0690; J1100; J1170; J1885; J2250; J2405; J2704; J2795; J3010; J3370; J7030; J7120

== ENCOUNTER 2025-07-05 11:40 | Outpatient (CLI) | payer BC, OTHER, SELFPAY ==
--- OUTSIDE RECORDS SUMMARY | 2025-07-05 11:55 | XMS_ITS | Patient Health Record ---
Author Organization [facility] Address [address] [place], [place] [id number] Care Team Providers Care Miller Head Assistant Wet Process Name Role Phone LINCOLN GALEAS Unavailable [phone] unknown, unknown Unavailable Unavailable Allergies No Known Allergies Reason For Referral No Information Encounters Encounter Location Date Provider Diagnosis [facility] [address] [place], [place] [id number] 10/09/2024 LINCOLN GALEAS Nondisplaced unspecified fracture of right lesser toe(s), initial encounter for closed fracture S92.504A and Pain in right foot M79.671 Assessments Encounter Date Diagnosis (ICD Code) Assessment Notes Treatment Notes Treatment Clinical Notes Section Notes 10/09/2024 Pain in right foot (ICD-10 - M79.671) 10/09/2024 Nondisplaced unspecified fracture of right lesser toe(s), initial encounter for closed fracture (ICD-10 - S92.504A) 10/09/2024 Other I advised the patient that no further treatment is necessary at this time. If the condition should worsen they should call the office. Plan Of Treatment No Information Insurance Providers Payer Name Payer Address Payer Phone Subscriber Number Group Number Insured Name Patient Relationship to Insured Coverage Start Date Coverage End Date [facility] ([facility]) ATTN CLAIMS [address] [place] [address] [id number] Ally Sahu Self - patient is the insured 3 [facility] [address] [facility] [phone] [id number] Ally Sahu Self - patient is the insured Medical (General) History Medical History History ICD Code Heart Disease Surgical History Surgery Date(Month/Year) Hip Replacement Bunionectomy Ingrown toenail
--- NOTE | 2025-07-05 12:46 | ECG_ITS ---
Test Date: 2025-07-05 12:59:48 Measurements Intervals [place] Rate: 62 P: 68 NH: 158 QRS: 46 QRSD: 90 T: 44 QT: 409 QTc: 417 Interpretive Statements SINUS RHYTHM WITH OCCASIONAL SUPRAVENTRICULAR PREMATURE COMPLEXES Compared to ECG 04/30/2024 16:02:55 Myocardial infarct finding no longer present Electronically Signed On 07-05-2025 20:05:52 CDT by Randee Bob M.D.
[2025-07-05 13:12] LABS: Hematocrit 40.1 % (37.0-47.0); Hemoglobin 13.3 g/dL (12.0-15.0); Immature Granulocyte Percent A 0.2 % (0-0.5); Lymphocytes Absolute Auto 2.11 K/mm3 (0.9-3.2); Mean Corpuscular HGB Conc 33.2 g/dl (32-36); Mean Corpuscular Hemoglobin 30.7 pg (26-34); Mean Corpuscular Volume 92.6 fl (80-100); Nucleated Red Blood Cells Absolute Auto 0.000 K/mm3 (0.0-0.012); Nucleated Red Blood Cells Perc 0.0 % (0.0-0.2); Platelet Count Result 312 k/mm3 (150-375); Red Blood Count 4.33 M/mm3 (4.2-5.4); White Blood Count 6.2 K/mm3 (4.5-10.0)
[2025-07-05 13:25] LABS: Hemoglobin A1C 5.3 % (<5.7)
[2025-07-05 13:36] LABS: Albumin Level 4.3 g/dL (3.5-5.1); Anion Gap 7 mmol/L (4-12); Blood Urea Nitrogen 13 mg/dL (7-17); Calcium 8.8 mg/dL (8.4-10.2); Carbon Dioxide 26 mmol/L (22-30); Chloride 105 mmol/L (98-107); Estimated Glomerular Filt Rate > 60; Glucose 83 mg/dL (65-110); Potassium 4.2 mmol/L (3.4-5.0); Sodium 138 mmol/L (137-145)
== END 2025-07-05 11:41 | disposition home or self-care (01) ==
LOC: ANHSURGERY 11:53
PROVIDERS: Visit Provider Orthopaedic Surgery
DX: Z01.818 Encounter for other preprocedural examination (principal); M16.31 Unilateral osteoarthritis resulting from hip dysplasia, right hip
CPT/HCPCS: 80048; 80307; 82040; 83036; 85025; 87081; 93005

== ENCOUNTER 2025-07-15 17:07 | Outpatient (CLI) | payer BC, OTHER, SELFPAY ==
--- OUTSIDE RECORDS SUMMARY | 2009-04-04 06:30 | XMS_ITS | Continuity of Care Document ---
Author Organization [facility] Address [address] [place] [address] [address] [place] [address] Phone Care Team Providers Care Division Order Analyst Name Role Phone Danielito Boyer Unavailable Unavailable Procedures Procedure Date Office/outpatient Visit, [facility] Advance Directives Directive Yes / No Effective Date File Name No Information Encounters Encounter Description Practice Location Reason(s) For Visit Diagnoses Date Provider Providers Copied on Encounter Office/outpat ient Visit, [facility], [address] [place] [address] [address], [place], [place], [id number], [place] tel:[phone] [facility] [place] No Information [address]. [address] , [address], [place], [address], [place]. tel:[phone] Family History Family Member Type Diagnosis Age At Onset No Information Payers Payer name Insurance type Covered republican ID Authoriza tion(s) Medicaid [facility] [id number] Social History Type Description Quantity Date Captured [...]
--- NOTE | ~2025-07-15 | XR_ITS ---
EXAMINATION: XR hip RT 2V w AP pelvis, 07/15/2025 17:24 CDT HISTORY: R52 - Pain, unspecified COMPARISON: No comparisons available. Findings: No acute fracture or malalignment. Moderate to severe degenerative changes Soft tissues unremarkable. Impression: No acute fracture or malalignment. Reviewed, dictated and finalized at location P. Impression: No acute fracture or malalignment.
--- OUTSIDE RECORDS SUMMARY | 2025-07-15 15:00 | XMS_ITS | Encounter Summary ---
Author Organization [facility] Healthcare Address [address] [place] [address] Care Team Providers Care Manager Union Name Role Phone Kristen Villela DNP Primary Care Provi jose d Reason for Referral * Cardiology (Routine) - Closed Specialty Diagnoses / Procedures Referred By Boyd soriano Referred To Contact Procedures ECG 12 lead Peggy Renner MD [address] [place] [address] Phone: tel: Referral ID Status Reason Start Date Expiration Date Visits Re quested Visits Authorized [id number] Closed 07/15/2025 08/14/2026 1 1 * Consultation (Routine) - Pending Review Specialty Diagnoses / Procedures Referred By Boyd soriano Referred To Contact Sleep Medicine Diagnoses At risk for sleep apnea Kristen Hurtado DNP [address] [facility] [address] [address] Phone: tel: fax: [facility] Pulmonary [address] [place] [phone] Phone: tel: fax: Referral ID Status Reason Start Date Expiration Date Visits Requested Visits Authorized [id number] Pending Review Specialty Services Required 07/15/2025 08/14/2026 1 1 Question Answer Please select the performing region: [facility] [[id number]] Please select the performing department: [id number] [[id number]] # of visits: 1 * Consultation (Urgent) - Pending Review Specialty Diagnoses / Procedures Referred By Boyd soriano Referred To Contact Cardiology Diagnoses Abnormal EKG Encounter for long-term (current) use of medications Kristen Villela DNP [address] [facility] [address] [place] [address] Phone: tel: fax: [facility] Cardiology [address] [address] Phone: tel: fax: Referral ID Status Reason Start Date Expiration Date Visits Requested Visits Authorized [id number] Pending Review Specialty Services Required 07/15/2025 08/14/2026 1 1 Question Answer # of visits: 1 Please select the performing region: [facility] [[id number]] Please select the performing department: [facility] [[id number]] Comments Abnormal EKG for pre-op clearance for right hip surgery 07/29/25. * Cardiology (Routine) - Pending Review Specialty Diagnoses / Procedures Referred By Boyd soriano Referred To Contact Diagnoses Abnormal EKG Preoperative general physical examination Procedures Transthoracic Echo (TTE) Complete W Doppler/CF Kristen Villela DNP [address] [facility] [address] [place] [address] Phone: tel: fax: [facility] [address] [place] [phone] Referral ID Status Reason Start Date Expiration Date V isits Requested Visits Authorized [id number] Pending Review 07/15/2025 08/14/2026 1 1 * Diagnostic Imaging (Routine) - Authorized Specialty Diagnoses / Procedures Referred By Boyd soriano Referred To Contact Diagnoses Encounter for screening mammogram for malignant neoplasm of breast Encounter for long-term (current) use of medications Procedures SCREENING MAMMOGRAM BILATERAL W GENIE Kristen Villela DNP [address] [facility] [address] [place] [address] Phone: tel: fax: External Order Referral ID Status Reason Start Date Expiration Date V isits Requested Visits Authorized [id number] Authorized 07/15/2025 08/14/2026 1 1 Reason for Visit * Reason Comments Surgical Clearance Encounter Details Date Type Department Care Team (Late st Contact Info) Description 07/15/2025 3:00 PM CDT Office Visit [facility] Family Medicine [address] [facility] [address] [place] [address] Kristen Villela DNP [address] [facility] [address] [place] [address] Preoperative general physical examination (Primary Dx); Encounter for screening mammogram for malignant neoplasm of breast; Abnormal EKG; Screening for diabetes mellitus; Lipid screening; Thyroid disorder screen; Encounter for vitamin deficiency screening; Encounter for long-term (current) use of medications; At risk for sleep apnea; Snores Social History Tobacco Use Types Packs/Day Years Used Date Smoking Tobacco: Former Cigarettes Q uit: 2014 Smokeless Tobacco: Never AUDIT-C Answer Date Recorded Q1: How often do you have a drink containing alc ohol? 2-4 times a month 05/17/2024 Q2: How many drinks containi ng alcohol do you have on a typical day when you are drinking? 1 or 2 05/17/2024 Frequency of Binge Drinking Not on file 05/2024 PHQ-2 Answer Date Recorded PHQ-2 Total Score (If total score is 3 or more points, staff should administer the PHQ-9) 0 07/15/2025 PHQ-9 Answer Date Recorded PHQ-9 Total Score 2 07/15/2025 Comments Unknown Sex and Gender Information Value Date Recorded Sex Assigned at Not on file Legal Sex Female 10:16 AM [employer] Gender Identity Not on file Sexual Orientation Not on file documented as of this encounter Last Filed Vital Signs Vital Sign Reading Time Taken Comments Blood Pressure 104/60 07/15/2025 3:11 PM CDT Pulse 67 07/15/2025 3:11 PM CDT Temperature 35.9 C (96.7 F) 07/15/2025 3:11 PM CDT Respiratory Rate - - Oxygen Saturation 98% 07/15/2025 3:11 PM CDT Inhaled Oxygen Concentration - - Weight 67.9 kg (149 lb 9.6 oz) 07/15/2025 3:11 P M CDT Height 157.5 cm (5' 2) 07/15/2025 3:11 PM CDT Body Mass Index 27.36 07/15/2025 3:11 PM CDT documented in this encounter Plan of Treatment Scheduled Orders Name Type Priority Associated Diagnoses Order Schedule SCREENING MAMMOGRAM BILATERAL W GENIE Imaging Schedule Routine, Read Routine (OP Routine) Encounter for screening mammogram for malignant neoplasm of breast Encounter for long-term (current) use of medications Expected: 07/15/2025, Expires: 09/14/2026 Comprehensive metabolic panel Lab Routine Preoperative general physical examination Screening for diabetes mellitus Encounter for long-term (current) use of medications Expected: 07/18/2025, Expires: 07/15/2026 Hemoglobin A1c Lab Routine Preoperative general physical examination Screening for diabetes mellitus Encounter for long-term (current) use of medications Expected: 07/18/2025, Expires: 07/15/2026 Lipid panel Lab Routine Preoperative general physical examination Lipid screening Encounter for long-term (current) use of medications Expected: 07/18/2025, Expires: 07/15/2026 Thyroid Function [place] [facility] Routine Preoperative general physical examination Thyroid disorder screen Encounter for long-term (current) use of medications Expected: 07/18/2025, Expires: 07/15/2026 Urinalysis reflex to microscopic and culture Urine, clean voided Microbiology Routine Preoperative general physical examination Encounter for long-term (current) use of medications Expected: 07/18/2025, Expires: 07/15/2026 Vitamin D 25 hydroxy Lab Routine Preoperative general physical examination Encounter for vitamin deficiency screening Encounter for long-term (current) use of medications Expected: 07/18/2025, Expires: 07/15/2026 Protime-INR Lab Routine Preoperative general physical examination Expected: 07/18/2025, Expires: 07/15/2026 Transthoracic Echo (TTE) Complete W Doppler/CF Echocardiography Routine Abnormal EKG Preoperative general physical examination Expected: 07/15/2025, Expires: 10/15/2026 Scheduled Referrals Name Type Priority Associated Diagnoses Orde r Schedule Ambulatory referral to Cardiology Outpatient Referral Urgent Abnormal EKG Encounter for long-term (current) use of medications Expected: 07/16/2025 (Approximate), Expires: 07/15/2026 Ambulatory referral to Sleep Medicine Outpatient Referral Routine At risk for sleep apnea Snores Expected: 07/15/2025 (Approximate), Expires: 07/15/2026 documented as of this encounter Procedures Procedure Name Priority Date/Time Associated Diagnosis Comments ECG 12-LEAD Routine 2025 documented in this encounter Results * ECG 12 lead (2025) us Historical Provider ECG ORDERABLES Final Res ult documented in this encounter Visit Diagnoses Diagnosis Preoperative general physical examination- Primary Other specified pre-operative examination Encounter for screening mammogram for malignant neoplasm of breast Abnormal EKG Nonspecific abnormal electrocardiogram (ECG) (EKG) Screening for diabetes mellitus Lipid screening Screening for lipoid disorders Thyroid disorder screen Screening for thyroid disorder Encounter for vitamin deficiency screening Encounter for long-term (current) use of medications Encounter for long-term (current) use of other medications At risk for sleep apnea Snores Other dyspnea and respiratory abnormality documented in this encounter Historical Medications * This list may reflect changes made after this encounter. diclofenac DR (VOLTAREN) 75 mg EC tablet Take 1 tablet (75 mg total) by mouth 2 (two) times a day traMADoL (ULTRAM) 50 mg tablet Take 1 tablet (50 mg total) by mouth every 6 (six) hours added in this encounter Care Teams Manager Union Relationship Specialty Start Date End Date Kristen Villela DNP [address] [facility] [address] [address] PCP - General Family Medicine 03/12/24 documented as of this encounter
--- OUTSIDE RECORDS SUMMARY | 2025-07-15 17:14 | XMS_ITS | Patient Health Record ---
Author Organization [facility] Address [address] [place], [place] [id number] Care Team Providers Care Diversity Intern Name Role Phone LINCOLN GALEAS Unavailable [phone] unknown, unknown Unavailable Unavailable Allergies No Known Allergies Reason For Referral No Information Encounters Encounter Location Date Provider Diagnosis [facility] [address] [place], [place] [id number] 10/09/2024 LINCOLN GALEAS Nondisplaced unspecified fracture of [...] Insured Coverage Start Date Coverage End Date [facility] [place] [facility] ATTN CLAIMS [address] [place] [address] [id number] Ally Sahu Self - patient is the insured 3 [facility] [address] [facility] [phone] [phone] [id number] Ally Sahu Self - patient is the insured Medical (General) History Medical History History ICD Code Heart Disease Surgical History Surgery Date(Month/Year) Hip Replacement Bunionectomy Ingrown toenail
--- OUTSIDE RECORDS SUMMARY | 2025-07-15 17:14 | XMS_ITS | Data Portability ---
Author Organization [place] - [facility] [employer], Main Office Address [address] [place] [address] Assessment Encounter Date Assessment Date Assessment LastModified by Organization Details LastModified Time 09/12/2023 09/12/2023 impression: 1. Severe osteoarthritis both hips more advanced on the left radiographically. She has Lobito type 1 acetabular dysplasia with yplz-sj-zmyo type 1 osteoarthritis superiorly bilaterally. The left side shows flattening of the superior femoral head due to wear indicating is bit more advanced. 2. Patient has symptoms consistent with sciatica in the right lower extremity. Associated with this she has quite a bit tenderness at the PSIS region and has intermittent tingling down the right leg to her toes and at times severe buttock pain. MRI scan shows kcsp-pu-[id number] neural foraminal stenosis L4-5 mild neural foraminal stenosis at L5-S1 on the right no disc herniation only bulging discs. There is tolh-la-irndiwst degenerative disc disease L2 through L4. She had no neurologic deficit on examination today. I reviewed the x-rays of her hips with her and explained osteoarthritis and its natural history to her.I have discussed treatment options with her. Examination shows reproduction of her anterolateral hip pain with provocative maneuvers of both hips in on the left side is a bit worse with anterior groin and medial proximal thigh pain with flexion internal rotation with greater restriction of range of motion on the left than on the right. Total hip replacement would be an appropriate option for her when she feels that her symptoms are limiting her substantially and she feels she has had had adequate relief from nonsurgical measures. I have given her the ortho info handout on total hip arthroplasty for her review as well as the direct anterior approach booklet. I have discussed with her that we may be able to control her symptoms fairly well with nonsteroidal anti-inflammatory medication which may allow her to postpone hip replacement for period of time perhaps a few years. She denies any history of liver problems kidney problems or peptic ulcer disease. I have recommended trying diclofenac 75 mg twice daily with food on a consistent basis initially. I discussed with her that if she gets excellent relief with this regimen she could experiment with cutting back to 1 a day. I have given her an instructions sheet describing possible side effects of anti-inflammatory medication use. She would like to try this option is hoping she can postpone hip replacement surgery. I will see her back in 1 month to assess her progress. 45 minutes were spent in total care this patient with more than half the time spent in bxdw-sf-lljv care. Not available 09/18/2023 18:37:04 10/13/2023 10/13/2023 Impression: Patient has developed a large effusion right knee following a stumble which caused her to do what sounds like a lunge and hard lunch at that after an after an hour or 2 she developed significant swelling in the knee. I have discussed options with her and I recommended proceeding with aspiration of the knee and possible injection. Risk of side effects including risk of infection discussed. After ChloraPrep prep, 11 cc of clear straw-colored fluid were aspirated From the right knee. I could read fine print easily through the fluid and therefore this was not sent for fluid analysis as it was not consistent with inflammatory effusion. 20 mg of Kenalog and 4 cc 0.5% ropivacaine were injected into the right knee. Impression: I suspect patient has patellofemoral arthritis that we cannot see readily on the x-rays. Having a significant effusion cause the patella to float off the trochlea on the sunrise view and lateral view. I have discussed with her that it is possible the other internal derangement may be present. I am going to see her back in 1 week. her day off so she would prefer to come in I will be out of town so I will have her see Lonnie. I recommended that she stop the Toradol and resume the diclofenac which she did tolerate well. 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 If she is having lot of pain on Tuesday she can call and get an extension on her work restriction. When she comes in next if she is vastly improved observation would be appropriate. If she is still having significant problems with the knee, I think it would be worthwhile to obtain an MRI scan of the right knee to accurately identify presence or absence of significant patellofemoral joint cartilage loss or other internal derangement. 30 minutes were spent total care this patient more than half the time spent in obgo-oi-ytgt care. Not available 10/13/2023 16:11:00 11/17/2023 11/17/2023 Impression: Patient has 2 problems. 1. She has severe type 1 osteoarthritis in both hips with acetabular dysplasia bilaterally. We have seen on previous examination that provocative maneuvers of right and hip demonstrate mild anterolateral hip pain as well as Stinchfield maneuver. Left hip range of motion is more reduced and was associated with moderate pain across the groin in the anterolateral hip. 2. Patient also has chronic lower back pain and pain into the right buttock and sacroiliac joint area. I have discussed her that hip replacement would have a high likelihood of giving her excellent relief from the anterolateral hip and left groin pain but probably will not help pain the posterior superior iliac spine area. Some patients will see a little bit of improvement in her lower back symptoms if they have been limping because of the hips and their limp is resolved by hip replacement but this is not predictable. She is not ready to proceed with hip replacement just yet. She would like to try and put it off as long as possible. Her symptoms have been tolerable thus far. I have discussed with her the option of increasing the diclofenac to take it as prescribed and see what kind of symptomatic relief she has and also observe what symptoms remain. If she has excellent relief of her symptoms taking the 75 mg twice daily she could cut back to taking diclofenac once daily. We discussed that she could consider misoprostol. She had her tubes tied many years ago and is not at risk for . She did ask about cortisone shots in the hips I reviewed with her the problem with that approach the risk of rapidly progressive destructive osteoarthritis of the hip differentiating this from infection the need to delay hip replacement surgery after cortisone shot does not work and other issues and I do not think that would be the best approach for her as it best to would give her only short term relief with the potential risks outweighing the potential benefit I feel. I discussed risks of anti-inflammatory medication with her again. I would recommend obtaining a CBC and CMP in another month. She will been using the diclofenac for 3 months by that time. She is going to tried twice a day see history 4. I am happy to see her back at any time. 20 minutes were spent total more than half the time spent in nhrf-rd-kbwc care per Not available 11/20/2023 13:28:46 Plan of Treatment Reminders Order Date Submit Date Provider Last Modified By Organization Details Last Modified Time Details Appointments None recorded. Lab BMP, serum or plasma - approx December 16 20232023 024 [email or web address] Not available 4 12:14:03 CBC w/ auto diff - approx december 16 20232023 024 [email or web address] Not available 12:14:03 Referral None recorded. Procedures injection/a spiration joint/bursa (PROC) - in office procedure, administere d by provider 2023 024 In-Office Order, Internal Use Only DO Not Attach Compendium DO Not Attach Compendium, Do Not Delete/merge, [id number] 4 16:13:17 Surgeries None recorded. Imaging XR, hip + pelvis, bilateral 2022 023 [email or web address] [facility], [address], [place], [address], 3 10:22:17 Medication Orders Kenalog 10 mg/mL suspension for injection 2023 024 [email or web address] [facility] [id number], [address], 4 14:28:12 ropivacaine (PF) 5 mg/mL (0.5 %) injection solution 2023 024 [email or web address] [facility] [id number] In [facility], [facility] [place], [address], 4 14:28:18 diclofenac sodium 75 mg tablet,bailey yed release 2022 023 [email or web address] [facility] [id number] In [facility], [address] [facility], [place], [address], 4 14:27:46 Patient TargetsNo targets recorded. Patient InstructionsNo instructions recorded. Reason for Referral None Reported. Results Created Date Observation Date Name Description Value Unit Range Abnormal Flag Note LastModifiedBy Organization Detail LastModifiedTime 09/12/20 23 XR, hip + pelvi s, bilat eral No observ ation record ed. [facility] [place] [address] [facility] [address], [place], [address], 09/18/2023 18:25:26 10/07/20 23 10/05/2023 XR, knee, 4 or more view No observ ation record ed. [email or web address] Not Available 09/10 10:18:36 10/20/19 24 10/05/2023 US, doppl er, venou s No observ ation record ed. [email or web address] Not Available 2023 17:02:13 Result Notes None recorded. Problems Name Problem SNOMED Code Status Onset Date Resolution Date Notes Provider Name and Address Organization Details Recorded Time Pain of bilateral hip joints 05760159032519 100 Active 2022 [facility] [employer] 3 17:09:20 Pain of right knee joint 13099700765363 0 Active 2023 [facility], [employer] 4 14:57:39 Pain of left hip joint 37098519322742 0 Active 2023 [facility] Carlin, [employer] 4 14:28:49 Problem Notes None recorded. Procedures Surgical History Date Name Laterality Status Provider Name and Address Organization Details Recorded Time excision of bunion completed [facility] [employer] 09/12/2023 17:07:54 Tubal Ligation completed [facility] [place] [facility] 09/12/2023 17:08:31 Imaging Results None recorded. Procedure Notes None recorded. Medical Equipment None Reported. Medications Name Sig Start Date Stop Date Status Note LastModified by Organization Details LastModified Time amoxicilli n 500 mg capsule 09/12 completed Not Available Not Available Not Available medroxypro gesterone 10 mg tablet 09/12 completed Not Available Not Available Not Available ketorolac 10 mg tablet TAKE 1 TABLET BY MOUTH EVERY 6 HOURS NEEDED FOR PAIN FOR 5 DAYS 10/13 completed Not Available Not Available Not Available hydrocorti sone 2.5 % topical cream with perineal applicator APPLY 1 APPLICAT ION RECTALLY TWICE A DAY NEEDED FOR HEMORRHO IDS FOR 10 DAYS 09/12 completed Not Available Not Available Not Available amoxicilli n 875 mg tablet TAKE 1 TABLET TWICE A DAY UNTIL GONE 09/12 completed Not Available Not Available Not Available Kenalog 10 mg/mL suspension for injection in office 11/17 completed ND: 0003-04 94-20 Not Available Not Available Not Available Xanax 0.25 mg tablet Take 1 tablet 3 times a day by oral route. 09/12 completed Not Available Not Available Not Available dexamethas one 4 mg tablet 09/12 completed Not Available Not Available Not Available diclofenac sodium 75 mg tablet,del ayed release Take 1 tablet twice a day by oral route. active taking as needed Not Available Not Available Not Available Osage 10 mg-325 mg tablet Take 1 tablet every 4 hours by oral route. 09/12 completed Not Available Not Available Not Available amoxicilli n 875 mg-potassi um clavulanat e 125 mg tablet TAKE 1 TABLET BY MOUTH TWICE A DAY UNTIL FINISHED 09/12 completed Not Available Not Available Not Available ibuprofen prn active Not Available Not Marie ilable Not Available Tylenol 11/17 completed Not Available Not Available Not Available ropivacain e (PF) 5 mg/mL (0.5 %) injection solution in office 11/17 completed Not Available Not Available Not Available Flucelvax Quad 8071-1992 (PF) 60 mcg (15 mcg x 4)/0.5 mL IM syringe TO BE ADMINIST ERED BY OMAR LEON FOR IMMUNIZA TION 09/12 completed Not Available Not Available Not Available Vitals Date Recorded Body height Provider Name an d Address Organization Details Last Updated DateTime 10/13/2023 157.48 cm Daxa Espinal [facility] [employer] 10/13/2023 14:55:41 Date Recorded Body height Provider Name an d Address Organization Details Last Updated DateTime 11/17/2023 157.48 cm Corrine 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 Functional Status Question Answer Note LastModified by Organization D etails LastModified Time What is your level of alcohol consumption? None [email or web address] Information not available 09/12/2023 Mental Status None recorded. Family History Relationship Description Onset Age of this Age Resolved Age Notes LastModified by Organization Details LastModified Time Father Heart disease [email or web address] Not available 2022 17:07:00 Father Hypertensive disorder [email or web address] Not available 2022 17:07:23 Father Diabetes mellitus Not available 2022 17:07:33 Medical History Condition Response ARTHRITIS Y Gynecological HistoryNo gynecological history recorded. Obstetrics History GPAL:G 0 P 0 0 0 0 Past Encounters Encounter ID Performer Location Encounter Start Date Encounter Closed Date Diagnosis/Indication Diagnosis SNOMED-CT Code Diagnosis ICD10 Code Diagnosis IMO Codes Diagnosis Note [id number] Dexter Osborn MD [facility] [place] 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 [id number] 89027 Z79.1 Health Concerns Section Related Observation LastModified by Organization Detai ls LastModified Time None Recorded Concern Status LastModified by Organization Details LastModified Time None Recorded Advance Directives Directive None Recorded Payers Insurance Date Sequence Insurance Name Policy Number Policy Bowen Covered Member ID Bowen Member ID Guarantor Name 09/12/2023 1 [facility] [id number] Ally Sahu [id number] Ally Santos 09/12/2023 2 [facility] Ally Sahu [id number] Ally Santos 12/30/2023 2 [facility] Gaurav Danielle [id number] Ally Santos 11/28/2023 1 [facility] ([id number]) [id number] Ally Sahu [id number] Ally Santos Notes Date Note Type Note Provider Name and Address Organization Details Recorded Time 09/12/2023 text/html patient is a 48-year-old female who was referred for evaluation of her osteoarthritis both hips. She has developed symptoms over many years. She knows the pain on the right side 1st but she can not put all her weight on the left side. Her symptoms very. Her worst pain is in the lateral aspect of her hip on the right which she rates at 7/10 and sometimes she feels severe pain right buttock occasional in the medial groin. She feels that the right hip hurts her the most or the right side hurts the most. She rates her pain at 7/10 on the right. On the left side the pain is mainly in the lateral hip which can be severe but currently is about 3 or 5/10. She has a long history of neck and back pain. She limbs. During the past year she has been unable to bear full weight on either leg comfortably. After she drives home from work she can barely walk when she gets out of the car. 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 She has to sit down to put on her clothes. At nighttime she feels a sensation of numbness and tingling. She limps and she is limited in her walking distance because of her hips. She did have a an epidural injection 2 years ago. She has had physical therapy for her back pain. She does not use a gait aid. She at times notes tingling that radiates down her right leg into her toes. She has had at least 2 MRI scans of the lumbar spine the last 1 2 years ago. She was on Osage for several years for her chronic neck and back pain and she was finally able to get off of that completely. She now uses ibuprofen on an as-needed basis but she does not like to take pain medication. At night time her pain can be so severe that she cries at night. The epidural steroid injection she had 2 years ago did seem to help a lot. MRI report dated October 22, 2021 lumbar spine from [facility] shows poks-kt-jhpqkror lumbar spondylosis. She had no central canal stenosis she had mild to moderate right mild left neural foraminal stenosis at L4-5 mild bilateral neural foraminal stenosis L5-S1 avtr-nc-sauhxbnl facet arthropathy at L4-5 and L5-S1 and mild at the other levels. She has mild diffuse disc bulging at all levels Of 2 the L2-3 level. She has difficulty standing very long and has to sit down frequently. Dexter Osborn MD [address] [place] [address], [place] [address], [place], [address], [place] [facility] 09/18/2023 18:37:53 10/13/2023 text/html patient returns. She was last seen by us on September 12, 2023 for left hip. She has severe advanced osteoarthritis of both hips with acetabular dysplasia bilaterally. She is here today for evaluation of her right knee. She fell a few days prior to that last office visit landing on her knee but it in making her very much. Then 2 weeks ago she stumbled and put her weight down hard onto the right foot going into a bit of a lunch which seemed put a lot of pressure right knee. She had mild soreness initially but then 1 or 2 hours later had rather severe pain. Her symptoms became worse and worse she noted marked swelling in the which caused her to go to the emergency room on 10/05/2023 with the did x-rays her right knee which showed no obvious abnormalities except for effusion in the knee. She denies any fevers or chills. No known infections. No prior problems with her right knee. In the ER she was given Toradol tablets. We had started her on diclofenac and she took these paretic LEEP. She has been a little bit torn as to whether not she wants to take the medicine and have the risk of side effects were not take the medicine. With the Toradol she was told to stop the diclofenac but she only took 1 tablet a day for those 5 days. Dexter Osborn MD [address], [place] [address], [place], [address], [employer] 10/13/2023 16:13:34 11/17/2023 text/html Patient returns. We last saw her on September 12, 2023. We gave her cortisone shot her right knee and that helped a great deal and her right knee has been essentially asymptomatic since. She has been taking the diclofenac only occasionally. On average she will take 2 or 3 doses per week. Her previous x-rays demonstrated rather severe osteoarthritis with acetabular dysplasia in both hips. Patient also has chronic lower back pain. Last night she had severe pain in the backs of both thighs sleeping on her sides. She has a history of sacroiliac joint pain on the right side for years and that seems to be the origin of her thigh pain she feels has the pain starts from that area and goes into her thighs. She has undergone physical therapy for her back in the past. Dexter Osborn MD [address], [facility] [address], [place], [address], [facility] [employer] 11/20/2023 13:29:01 OBGyn Episode No OBEpisode recorded.
--- OUTSIDE RECORDS SUMMARY | 2025-07-15 17:14 | XMS_ITS | Clinical Summary ---
Author Organization [address] Address [address] [place] [address] [address] [place] [address] Care Team Providers Care Manager Mac Name Role Phone Kristen Villela DNP Primary Care Provi jose d Allergies Active Allergy Reactions Criticality Noted Date Comments Morphine Vomiting Low 10/30/2012 vomiting Medications multivitamin with minerals tablet Take 1 tablet by mouth daily Active traMADoL (ULTRAM) 50 mg tablet Take 1 tablet (50 mg total) by mouth every 6 (six) hours Active diclofenac DR (VOLTAREN) 75 mg EC tablet Take 1 tablet (75 mg total) by mouth 2 (two) times a day Active Active Problems Problem Noted Date Diagnosed Date Adult general medical exam 03/13/2024 Assessment & Plan (03/13/2024 7:50 AM CDT): Preop labs and EKG ordered Sign release of information to obtain medical records Chronic left hip pain 03/12/2024 Assessment & Plan (03/13/2024 7:50 AM CDT): Pending surgery at [facility] for left hip 05/21/24 Encounters Date Type Department Care Team Description 07/15/2025 3:00 PM CDT Office Visit [facility] Family Medicine [facility] [address] [place] [address] Kristen Villela DNP Preoperative general physical examination (Primary Dx); Encounter for screening mammogram for malignant neoplasm of breast; Abnormal EKG; Screening for diabetes mellitus; Lipid screening; Thyroid disorder screen; Encounter for vitamin deficiency screening; Encounter for long-term (current) use of medications; At risk for sleep apnea; Snores 07/08/[address] [facility] Family Medicine [address] [facility] [address] [place] [address] Kristen Villela DNP Medical Question/Miscellaneou s from Last 3 Months Immunizations Immunization Administration Dates Next Due Influenza, Quadrivalent, Altagracia l Culture-based MDCK, Preservative Free, Antibiotic Free, Intramuscular 07/31/2018 Influenza, Unspecified 07/15/2025(Deferr ed: Patient Refused),07/10/2024(Deferred: Patient Refused),07/10/2023(Deferred: Patient Refused) Surgical History Surgery Date Site/Laterality Comments TUBAL LIGATION BUNIONECTOMY Right TOTAL HIP ARTHROPLASTY Left Family History Medical History Relation Name Comments Diabetes Father Heart disease Father Relation Name Status Comments Father Mother Alive Social History Tobacco Use Types Packs/Day Years Used Date Smoking Tobacco: Former Cigarettes Q uit: 2014 Smokeless Tobacco: Never Tobacco Cessation:Counseling Given: No AUDIT-C Answer Date Recorded Q1: How often [...] on file 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 Gender Identity Not on file Sexual Orientation Not on file Obstetrics History Last Filed Vital Signs Vital Sign Reading Time Taken Comments Blood Pressure 104/60 07/15/2025 3:11 PM CDT Pulse 67 07/15/2025 3:11 PM CDT Temperature 35.9 C (96.7 F) 07/15/2025 3:11 PM CDT Respiratory Rate 18 05/17/2024 3:59 PM CDT Oxygen Saturation 98% 07/15/2025 3:11 PM CDT Inhaled Oxygen Concentration - - Weight 67.9 kg (149 lb 9.6 oz) 07/15/2025 3:11 P M CDT Height 157.5 cm (5' 2) 07/15/2025 3:11 PM CDT Body Mass Index 27.36 07/15/2025 3:11 PM CDT Plan of Treatment Health Maintenance Due Date Last Done Comments Breast Cancer Screening-Mammogram 1975 Cervical Cancer Screening 1975 Colon Cancer Screening-Colonoscopy 1975 Hepatitis C Screening 1975 DTaP/Tdap/Td Vaccine (1 - Tdap) 1986 Hepatitis B Screening 1993 Regular Well Visit/Exam 18-64 1993 Influenza Vaccine (#1) 2025 07/31/2018 Zoster Vaccine (1 of 2) 2025 Depression Screening 07/15/2026 07/15/2025, 07/15/2025, 03/12/2024 Pneumococcal vaccine <65 Aged Out No longer eligible based on patient's age to complete this topic Procedures Procedure Name Priority Date/Time Associated Diagnosis Comments ECG 12-LEAD Routine 2025 from Last 3 Months Results * ECG 12 lead (2025) us Historical Provider ECG ORDERABLES Final Res ult from Last 3 Months Insurance [facility] O[facility] [employer] [facility] O[facility] Member Subscriber Plan / Payer (Ef fective 2021-Present) Name:Ally Peterson Relation to Subscriber:Self Name:Ally Peterson Payer ID:[id number] (NAIC) Type:[employer] Address: [address] Care Teams Manager Mac Relationship Specialty Start Date End Date Kristen Villela DNP [address] [address] PCP - General Family Medicine 03/12/24
== END 2025-07-15 17:08 | disposition home or self-care (01) ==
PROVIDERS: Visit Provider Orthopaedic Surgery
DX: M16.11 Unilateral primary osteoarthritis, right hip (principal); R52 Pain, unspecified
CPT/HCPCS: 73502

== ENCOUNTER 2025-07-29 00:32 | Day surgery (SDC) | payer BC, OTHER, SELFPAY ==
--- OUTSIDE RECORDS SUMMARY | 2009-04-04 06:30 | XMS_ITS | Continuity of Care Document ---
Author Organization [facility] Address [address] [place] [address] [address] [place] [address] Phone Care Team Providers Care Drop Crew Laborer Name Role Phone Danielito Boyer Unavailable Unavailable Procedures Procedure Date Office/outpatient Visit, [facility], [place] Advance Directives Directive Yes / No Effective Date File Name No Information Encounters Encounter Description Practice Location Reason(s) For Visit Diagnoses Date Provider Providers Copied on Encounter Office/outpat ient Visit, [facility], [address] [place] [address] [address], [place], [place], [id number], [place] tel:[phone] [facility] [place] No Information 6-[address]. [address] , [address], [place], [address], [place]. tel:[phone] Family History Family Member Type Diagnosis Age At Onset No Information Payers Payer name Insurance type Covered republican ID Authoriza tion(s) Medicaid [facility] [id number] Social History Type Description Quantity Date Captured Comments Sex Female Smoking Status No Information Chief Complaint And Reason For Visit No Information Reason For Referral Reason For Referral No Information History Of Present Illness Encounter Date Complaint History Of Prese nt Illness No Information Functional Status Date Functional Assessmen t No Information Instructions Date Instruction Additional Infor mation No Information Assessments Type Assessment Date No Information Patient Care Teams Name Effective Dates (start - stop) Status Members No Information
--- NOTE | 2025-07-05 11:56 | PC.NURSE ---
[facility] has started construction of its new state of the art ER which will open Spring 2026. With this, we anticipate parking may be a challenge for some our surgical patients and families. Parking spaces are limited but are available for all Surgical, obstetrics, and ER patients sharing this lot. If you arrive and find you are having a hard time finding a parking space, please note that we understand the challenges, please drive around the hospital and park near Hospital Entrance 1. When you enter this entrance, you can ask a volunteer to direct or take you back to the surgical waiting area to check in. We appreciate everyone?s understanding of these expected challenges while we build for your future. Report to the Outpatient Waiting Room, entrance under the green pavilion located off [address], at time _6 AM on date _07/29/25 . Planned Procedure Time: __7:30 AM .? Time changes happen often and if your time is changed the preop area will call you the afternoon before. - You and your visitor will be asked to self-screen and do not enter if you have any COVID symptoms. Please call surgeon if you need to reschedule. - A mask is optional within the hospital at this time. Patients may have clear liquids (water, carbonated beverages, clear teas, apple juice) until 3 hours prior to surgery ( 4:30 AM) with a maximum of 20 ounces. - No food from midnight until time of surgery and no smoking, or chewing tobacco (or any form of nicotine). No chewing gum, candy or mints. Take only the following medications with a SIP of water on the morning of surgery: NONE DO NOT STOP ANY OF YOUR OTHER PRESCRIPTION MEDICATIONS PRIOR TO SURGERY EXCEPT THE FOLLOWING Hold all vitamins and supplements for 3 days per anesthesiologist.LAST DOSE07/25/25 Medications to discontinue per physician _DICLOFENAC HOLD 7 DAYS PRE OP PER DR DAVIS Date to take last dose__07/21/25 Please no make-up, nail wolof, hairspray, perfume, deodorant, or body powder the day of surgery.? No jewelry (including any body piercings) or valuables the day of surgery, leave them at home.? Please take a shower or bath the night before, or the morning of, surgery with an antibacterial soap.? Wear comfortable, loose fitting clothing.? Children are encouraged to wear pajamas. - Jewelry must be removed prior to entering the operating room.? Rings and piercings that are not removed may be cut off. - The hospital will not accept responsibility for valuables.? - Please leave all valuables, including medications, at home the day of surgery. If you are going home after surgery, a licensed utility worker driver must drive you home.? - NO public transportation without another adult if you receive anesthesia. - We recommend that an adult stay with you for 24 hours following discharge. - We also recommend that you do not drive, make important decision, drink alcoholic beverages, or take any drugs that were not prescribed by your health care provider for at least 24 hours after your discharge time. Follow any additional instructions given to you from your surgeon. VERBAL AND WRITTEN instructions given to ___PATIENT and asked if any additional questions and then verbalized understanding. Patient advised to call surgeon office or pre surgery nurse liaison [phone] if any additional questions.
[2025-07-05 11:58] VITALS: BMI 27.1
[2025-07-05 12:43] VITALS: BP 101/69; PULSE 70; RESP 18; TEMP 36.8; O2SAT 98
--- NOTE | 2025-07-26 07:25 | P.HP_ITS ---
H&P: HPI History of Present Illness Date/Time: 07/26/25 07:25 Chief Complaint: Right hip DJD Narrative: 80-year-old female presents today for a right anterior total hip arthroplasty. She underwent left anterior total hip arthroplasty in 2023. She had excellent results and is very happy with her left total hip. This point she has apun-jv-wrul osteoarthritis of the right hip. She has been treating this with diclofenac as well as occasional tramadol. At this point her symptoms have become more problematic on a daily basis. It is affecting her daily activities. Patient feels this point she is ready proceed with total hip arthroplasty rather than continue nonsurgical treatment. Review of Systems Review of Systems: All systems reviewed & are unremarkable except as noted in HPI and below PMFSH Past Medical History Medical History Screening for breast cancer Anxiety Surgical History Surgical History History of hip surgery H/O tubal ligation History of bunionectomy Family History Family History Grandparent Heart disease Father Hypertension Diabetes mellitus Heart disease Social History Social History (Updated 07/17/25 @ 13:44 by Belkis Serrano [facility]) Smoking packs per day: 1 Smoking cigarettes per day: 20.0 Years smoked: 25 Smoking pack-years: 25.00 Smoking status: Former smoker Tobacco type: cigarettes Second hand tobacco smoke exposure: Yes Smoking end date: 10/10/15 Additional smoking assessment comments: DENIES ANY FORM OF TOBACCO USE Alcohol intake: current Drinks per week: 5 Alcohol use details: BEER Substance use: never Substance use type: does not use Lack of Transportation: No Lack of Food: Never True Current Housing: I Have Housing Concerned About Future Housing: No Difficulty Paying Gas/Electric Bills: No Difficulty Paying for Meds: No Currently Unemployed: No Education: High School Diploma/GED Difficulty w/ Childcare or Family Care: No Living arrangements: with family Additional living arrangements comments: , children and mother Occupation/Education: occupation 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 Gender identity (if verbalized by the patient): Female Sexual Orientation (if Verbalized by the Patient): Straight or Heterosexual Spiritual care concerns: No Meds Home Medications and Allergies Home Medications ?Medication ?Instructions ?Recorded ?Confirmed ?Type multivitamin with minerals 1 tablet PO DAILY 04/30/24 07/17/25 History (Hair,Skin and Nails tablet) diclofenac sodium 75 mg 75 mg PO BID #60 tabs 07/17/25 Rx tablet,delayed release acetaminophen 500 mg tablet 500 mg PO PRN PRN pain 07/17/25 History (Acetaminophen Pain Relief) tramadol 50 mg tablet 50 mg PO Q8H PRN pain #40 ta bs 07/15/25 07/17/25 Rx Allergies Allergy/AdvReac Type Severity Reaction Status Date / Time morphine AdvReac Intermediate Vomiting Verified 07/17/25 11:04 Exam Narrative: 50-year-old female alert pleasant. She is 5 ft 2 147 lb BMI 6. Right hip range of motion is from 0-90 degrees. At 90? she has moderate anterior groin pain. External rotation of 30 without discomfort internal rotation is 0 with moderate groin pain. She has moderate pain with Stinchfield. She has normal abduction strength in lateral position. Moderate tenderness over the greater trochanter to palpation. She has normal sensation to the right lower extremity. 2+ do rsalis pedis and posterior tibial artery pulse. 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 This point patient feels she is proceed with total hip arthroplasty. She did very well following her left total hip in 2023. She will stop her diclofenac 7 days prior to surgery as well as any aspirin ibuprofen products. She has seen her primary care doctor and has been cleared. She did have abnormality on her EKG which was present on her previous surgery. Echocardiogram was ordered. It showed ejection fraction at 55%. No other abnormalities were noted. Patient's nasal swab was negative. Hemoglobin 13.3 and platelets were 312. Chem panel was all within normal limits creatinine 0.73
[2025-07-29] VITALS (15 sets, daily range): BP systolic 98–126; BP diastolic 56–79; PULSE 63–80; RESP 12–20; TEMP 35.7–36.8; O2SAT 96–100
--- NOTE | ~2025-07-29 | XR_ITS ---
XR surgery orthopedic Indication: Right total hip arthroplasty TECHNIQUE: Fluoroscopy used during Right total hip arthroplasty performed by [Dexter Osborn MD] on 07/29/2025. 57 seconds of fluoroscopy with one fluoroscopic images captured. FINDINGS: Correlate with procedure note. IMPRESSION: Fluoroscopy used during Right total hip arthroplasty. Reviewed, dictated and finalized at location O.
--- NOTE | ~2025-07-29 | XR_ITS ---
EXAMINATION: XR hip RT min 2V DATE: 07/29/2025 11:58 INDICATION: Postoperative evaluation following right total hip arthroplasty TECHNIQUE: Anteroposterior view of the and right hip and pelvis and cross-table lateral views of the right hip were obtained. COMPARISON: 07/15/25 FINDINGS: No interval change in a prior left total hip arthroplasty. Interval placement of a new right total hip arthroplasty. Both are plasties are in near-anatomic alignment. No fracture. Expected postoperative soft tissue gas about the right hip. IMPRESSION: 1. Expected appearance post right total hip arthroplasty. See procedure note for further detail. Reviewed, dictated and finalized at location A. IMPRESSION: 1. Expected appearance post right total hip arthroplasty. See procedure note fo r further detail.
--- OUTSIDE RECORDS SUMMARY | 2025-07-29 00:37 | XMS_ITS | Patient Health Record ---
Author Organization [facility] Address [address] [place], [place] [id number] Care Team Providers Care Worksite Wellness Practitioner Name Role Phone LINCOLN GALEAS Unavailable [phone] unknown, unknown Unavailable Unavailable Allergies No Known Allergies Reason For Referral No Information Encounters Encounter Location Date Provider Diagnosis [facility] [address] [place], [place] [id number] 10/09/2024 LINCOLN GALEAS Nondisplaced unspecified fracture of [...] Insured Coverage Start Date Coverage End Date [facility] ([facility]) ATTN CLAIMS [address] [place] [address] [id number] Ally Sahu Self - patient is the insured 3 [facility] [address] [facility] [address] [id number] Ally Sahu Self - patient is the insured Medical (General) History Medical History History ICD Code Heart Disease Surgical History Surgery Date(Month/Year) Hip Replacement Bunionectomy Ingrown toenail
--- OUTSIDE RECORDS SUMMARY | 2025-07-29 00:37 | XMS_ITS | Data Portability ---
Author Organization [place] [facility], Main Office Address [address] [place] [address] Assessment Encounter Date Assessment Date Assessment LastModified by Organization Details LastModified Time 09/12/2023 09/12/2023 impression: 1. Severe osteoarthritis both hips more advanced on the left radiographically. She has Lobito type 1 acetabular dysplasia with tgcf-ws-misb type 1 osteoarthritis superiorly bilaterally. The left [...] times severe buttock pain. MRI scan shows rndr-mn-twmunwzl neural foraminal stenosis L4-5 mild neural foraminal stenosis at L5-S1 on the right no disc herniation only bulging discs. There is jdou-dh-djjfuchx degenerative disc disease L2 through L4. She [...] more than half the time spent in ogty-xn-xahb care. Not available 09/18/2023 18:37:04 10/13/2023 10/13/2023 [...] more than half the time spent in seaz-sq-acsa care. Not available 10/13/2023 16:11:00 11/17/2023 11/17/2023 [...] more than half the time spent in wxco-cq-hfai care per Not available 11/20/2023 13:28:46 Plan of Treatment Reminders Order Date Submit Date Provider Last Modified By Organization Details Last Modified Time Details Appointments None recorded. Lab BMP, serum or plasma - approx December 16 20232023 024 [email or web address] Not available 4 12:14:03 CBC w/ auto diff - approx december 16 20232023 024 [email or web address] Not available 12:14:03 Referral None recorded. Procedures injection/a spiration joint/bursa (PROC) - in office procedure, administere d by provider 2023 024 In-Office Order, Internal Use Only DO Not Attach Compendium DO Not Attach Compendium, Do Not Delete/merge, [id number] 4 16:13:17 Surgeries None recorded. Imaging XR, hip + pelvis, bilateral 2022 023 [email or web address] [facility] [place], [address], [place], [address], 3 10:22:17 Medication Orders Kenalog 10 mg/mL suspension for injection 2023 024 [email or web address] [facility] [address], [address], 4 14:28:12 ropivacaine (PF) 5 mg/mL (0.5 %) injection solution 2023 024 [email or web address] [facility] In [facility], [facility] [place], [address], 4 14:28:18 diclofenac sodium 75 mg tablet,bailey yed release 2022 023 [email or web address] [facility] [address] In [facility], [address] [facility], [place], [address], 4 14:27:46 Patient TargetsNo targets recorded. Patient InstructionsNo instructions recorded. Reason for Referral None Reported. Results Created Date Observation Date Name Description Value Unit Range Abnormal Flag Note LastModifiedBy Organization Detail LastModifiedTime 09/12/20 23 XR, hip + pelvi s, bilat eral No observ ation record ed. [facility] [place] [address] [facility] [address], [place], [address], 09/18/2023 18:25:26 10/07/20 23 10/05/2023 XR, knee, [...] Recorded Time Pain of bilateral hip joints 19855585308333 100 Active 2022 [facility] [employer] 3 17:09:20 Pain of right knee joint 94552238113325 0 Active 2023 [facility], [employer] 4 14:57:39 Pain of left hip joint 64830154693484 0 Active 2023 [facility], [employer] 4 14:28:49 Problem Notes None recorded. Procedures Surgical History Date Name Laterality Status Provider Name and Address Organization Details Recorded Time excision of bunion completed [facility] [employer] 09/12/2023 17:07:54 Tubal Ligation completed [facility] [place] [facility] 09/12/2023 17:08:31 Imaging Results None recorded. Procedure [...] needed Not Available Not Available Not Available [place] 10 mg-325 mg tablet Take 1 tablet [...] Available Not Available Not Available Flucelvax Quad 1582-0212 (PF) 60 mcg (15 mcg x 4)/0.5 mL IM syringe TO BE ADMINIST ERED BY OMAR LEON FOR IMMUNIZA TION 09/12 completed Not Available Not Available Not Available Vitals Date Recorded Body height Provider Name an d Address Organization Details Last Updated DateTime 10/13/2023 157.48 cm Daxa Espinal [facility] Compliance Control [facility] 10/13/2023 14:55:41 Date Recorded Body height Provider Name an d Address Organization Details Last Updated DateTime 11/17/2023 157.48 cm Corrine Iqbal CNA [facility]iance Control [facility] 11/17/2023 14:27:22 Date Recorded Body height Body mass index (BMI) Body weight Provider Name and Address Organization Details Last Updated DateTime 09/12/2023 157.48 cm 27.6 kg/m2 73568.45 g Daxa Espinal [facility] Compliance Control [facility] 09/12/2023 17:18:47 Social History None recorded. Functional Status Question Answer Note LastModified by Organization D etails LastModified Time What is your level of alcohol consumption? None [email or web address] Information not available 09/12/2023 Mental Status None recorded. Family History Relationship Description Onset Age of this Age Resolved Age Notes LastModified by Organization Details LastModified Time Father Heart disease [email or web address] Not available 2022 17:07:00 Father Hypertensive disorder [email or web address] Not available 2022 17:07:23 Father Diabetes mellitus [email or web address] Not available 2022 17:07:33 Medical History Condition Response ARTHRITIS Y Gynecological HistoryNo gynecological history recorded. Obstetrics History GPAL:G 0 P 0 0 0 0 Past Encounters Encounter ID Performer Location Encounter Start Date Encounter Closed Date Diagnosis/Indication Diagnosis SNOMED-CT Code Diagnosis ICD10 Code Diagnosis IMO Codes Diagnosis Note [id number] Dexter Osborn MD [facility] [place] 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 5249720539 73247 Z79.1 Health Concerns Section Related Observation LastModified by Organization Detai ls LastModified Time None Recorded Concern Status LastModified by Organization Details LastModified Time None Recorded Advance Directives Directive None Recorded Payers Insurance Date Sequence Insurance Name Policy Number Policy Bowen Covered Member ID Bowen Member ID Guarantor Name 09/12/2023 1 [facility] [id number] Ally Sahu [id number] Ally Santos 09/12/2023 2 [facility] Ally Sahu [id number] Ally Santos 12/30/2023 2 [facility] Gaurav Danielle [id number] Ally Santos 11/28/2023 1 [facility] ([facility]) [id number] Ally Sahu [id number] Ally Santos Notes Date Note Type Note [...] the car. 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 She has to sit down to put [...] 1 2 years ago. She was on [place] for several years for her chronic neck [...] dated October 22, 2021 lumbar spine from [facility] shows lnze-wt-drgeriye lumbar spondylosis. She had no central canal stenosis she had mild to moderate right mild left neural foraminal stenosis at L4-5 mild bilateral neural foraminal stenosis L5-S1 qpio-pa-xqogsckj facet arthropathy at L4-5 and L5-S1 and mild at the other levels. She has mild diffuse disc bulging at all levels Of 2 the L2-3 level. She has difficulty standing very long and has to sit down frequently. Dexter Osborn MD [address] [place] [address], [place] [address], [place], [address], [place] [facility] 09/18/2023 18:37:53 10/13/2023 text/html patient returns. She [...] days. Dexter Osborn MD [address], [place] [address], [place], [address], [employer] 10/13/2023 16:13:34 11/17/2023 text/html Patient returns. We [...] past. Dexter Osborn MD [address], [facility] [address], [place], [address], Compliance Control [facility] 11/20/2023 13:29:01 OBGyn Episode No OBEpisode recorded.
--- OUTSIDE RECORDS SUMMARY | 2025-07-29 00:37 | XMS_ITS | Encounter Summary ---
Author Organization [facility] Address [address] [place] [address] Care Team Providers Care Cashier Self Service Gasoline Name Role Phone Kristen Villela DNP Primary Care Provi jose d Reason for Visit * Reason Onset Date Comments Test Results 07/19/2025 Encounter Details Date Type Department Care Team (Late st Contact Info) Description 07/19/2025 Telephone [facility] Family Medicine [address] [facility] [address] [place] [address] Kristen Villela, [address] [place] [address] Test Results Social History Tobacco Use Types Packs/Day Years Used Date Smoking Tobacco: Former Cigarettes Q uit: 2015 Smokeless Tobacco: Never AUDIT-C Answer Date Recorded [...] on file 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 No Additional Questions/Comments: results are in Epic Does message need to be routed? Yes-Action Needed documented in this encounter Plan of Treatment Not on file documented as of this encounter Visit Diagnoses Not on filedocumented in this encounter Care Teams Cashier Self Service Gasoline Relationship Specialty Start Date End Date Kristen Villela DNP [facility] [place] [place] [address] PCP - General Family Medicine 03/12/24 documented as of this encounter
--- OUTSIDE RECORDS SUMMARY | 2025-07-29 00:37 | XMS_ITS | Encounter Summary ---
Author Organization [facility] Healthcare Address [address] [place] [address] Care Team Providers Care County Extension Agent Name Role Phone Kristen Villela DNP Primary Care Provi jose d Encounter Details Date Type Department Care Team (Late st Contact Info) Description 07/23/2025 Results Follow-Up 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
--- OUTSIDE RECORDS SUMMARY | 2025-07-29 00:37 | XMS_ITS | Encounter Summary ---
Author Organization [facility] Healthcare Address [address] [place] [address] Care Team Providers Care Harvest Crew Supervisor Name Role Phone Kristen Villela DNP Primary Care Provi jose d Reason for Visit * Reason Onset Date Comments Medical Question/Miscellaneous 07/22/2025 Encounter Details Date Type Department Care Team (Late st Contact Info) Description 07/22/2025 Telephone [facility] Family Medicine [address] [facility] [address] [place] [address] Kristen Villela, [address] [place], [place] [id number] Medical Question/Miscellaneous Social History Tobacco Use Types Packs/Day Years [...] on file 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 Yes-Action Needed documented in this encounter Plan of Treatment Not on file documented as of this encounter Visit Diagnoses Not on filedocumented in this encounter Care Teams Harvest Crew Supervisor Relationship Specialty Start Date End Date Kristen Villela DNP [address] [facility] [address] [place] [address] PCP - General Family Medicine 03/12/24 documented as of this encounter
[2025-07-29] MEDS: ACETAMINOPHEN 500 MG TABLET 1000 MG PO (06:36)
[2025-07-29] MEDS: LACTATED RINGERS 1,000 ML 30 ML IV CONT ×2 (06:40→11:58)
[2025-07-29] MEDS: VANCOMYCIN HCL 1,000 MG in SODIUM CHLORIDE 0.9% IV 250 ML 250 MG IVPB ×2 (06:47→17:53)
[2025-07-29] MEDS: TRANEXAMIC ACID 1,000MG/ISO100 1,000 MG/100 ML BAG 200 MG IVPB (06:47)
[2025-07-29 06:55] LABS: BEDSIDEPREGUCG Negative (Negative)
--- NOTE | 2025-07-29 06:58 | WPDHPUPDATE1 ---
History and Physical Update Update Date/Time: 07/29/25 06:58 History and Physical has been reviewed, including an updated exam of the patient. There are NO changes in the patient's condition. Risks, benefits, and alternatives have been discussed and questions answered. Patient agrees to proceed with procedure.
--- NOTE | 2025-07-29 07:23 | WPDANESEPPF ---
Anes - Initial Pre Proc Eval Procedure: Operation Date: 07/29/25 07:30 Proposed Procedures p Right Total Hip Arthroplasty, Direct Anterior Approach - Dexter Osborn MD Date/Time: 07/29/25 07:23 Surgeon: Dexter Osborn MD Pre Op Diagnosis: OA right hip Patient Data Age: 50 Gender: F Height: 1.57 m Weight: 64.9 kg Last Vital Signs Temp 97.7 F 07/29/25 06:25 Pulse 65 07/29/25 06:25 Resp 18 07/29/25 06:25 BP 109/77 07/29/25 06:25 Pulse Ox 98 07/29/25 06:25 O2 Del Method Room Air 07/29/25 06:25 Allergies Allergy/AdvReac Type Severity Reaction Status Date / Time morphine AdvReac Intermediate Vomiting Verified 07/29/25 06:51 Home Medications ?Medication ?Instructions ?Recorded ?Confirmed ?Type multivitamin with minerals 1 tablet PO DAILY 04/30/24 07/29/25 History (Hair,Skin and Nails tablet) diclofenac sodium 75 mg 75 mg PO BID #60 tabs 05/27/25 07/29/25 Rx tablet,delayed release acetaminophen 500 mg tablet 500 mg PO PRN PRN pain 07/05/25 07/29/25 History (Acetaminophen Pain Relief) tramadol 50 mg tablet 50 mg PO Q8H PRN pain #40 tabs 07/15/25 07/29/25 Rx Laboratory Tests 07/29/25 07/29/25 06:35 06:44 POC Urine HCG, Qual Negative (Negative) Blood Type Pending Antibody Screen Pending Patient hx anesthesia problems: none Family hx anesthesia problems: none Results Review: All pre-operative results and documents have been reviewed as part of the pre-operative evaluation. [facility] Past Medical History Medical History Screening for breast cancer Anxiety Surgical History Surgical History History of hip surgery H/O tubal ligation History of bunionectomy Family History Family History Grandparent Heart disease Father Hypertension Diabetes mellitus Heart disease Social History Social History (Updated 07/17/25 @ 13:44 by Belkis Serrano [facility] Smoking packs per day: 1 Smoking cigarettes per day: 20.0 Years smoked: 25 Smoking pack-years: 25.00 Smoking status: Former smoker Tobacco type: cigarettes Second hand tobacco smoke exposure: Yes Smoking end date: 10/10/15 Additional smoking assessment comments: DENIES ANY FORM OF TOBACCO USE Alcohol intake: current Drinks per week: 5 Alcohol use details: BEER Substance use: never Substance use type: does not use Lack of Transportation: No Lack of Food: Never True Current Housing: I Have Housing Concerned About Future Housing: No Difficulty Paying Gas/Electric Bills: No Difficulty Paying for Meds: No Currently Unemployed: No Education: High School Diploma/GED Difficulty w/ Childcare or Family Care: No Living arrangements: with family Additional living arrangements comments: , children and mother Occupation/Education: occupation 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 Gender identity (if verbalized by the patient): Female Sexual Orientation (if Verbalized by the Patient): Straight or Heterosexual Spiritual care concerns: No Anes - Eval Final PreProcedure Day of Procedure 07/29/25 07:23 Patient weight: normal Heart: regular rate and rhythm Lungs: clear to auscultation Airway: Mallampati scale class II Neurological: alert and oriented Last oral intake: >/= 8 hours ASA classification: II Emergent: no Anesthetic plan: proceed Anesthesia type and monitoring: general ETT and standard monitoring Results Review: All pre-operative results and documents have been reviewed as part of the pre-operative evaluation. Informed Consent: The patient's anesthetic plan and its attendant risks and benefits were discussed with the patient/family/POA. Questions were solicited and answers provided to the satisfaction of the patient/family/POA.
[2025-07-29] MEDS: ceFAZolin 2 GM in SODIUM CHLORIDE 0.9% IV 50 ML 100 ML IVPB ×3 (07:32→23:35)
[2025-07-29] MEDS: SODIUM CHLORIDE 0.9% IV 38.7 ML, ROPivacaine HCL 1% 200 MG, KETOROLAC INJ (*BKC) 15 MG,... INFILTRATE (08:45)
[2025-07-29] MEDS: TRANEXAMIC ACID 1,000 MG/10 ML AMPUL 1000 MG IV PUSH (11:00)
[2025-07-29] MEDS: KETOROLAC 15 MG/ML VIAL (*BKC) 7.5 MG IV PUSH (11:01)
--- NOTE | 2025-07-29 12:46 | P.OP_ITS ---
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 2 g of Ancef weight based vancomycin 1 g of TXA were given. Hayward catheter was placed. The right foot was padded with soft roll and boots applied SCDs applied and running during the procedure. She was transferred to the [facility] table and the right hip prepped draped usual fashion. A 10 cm longitudinal incision was made 3 cm lateral to the ASIS extending distal from that point. Dissection was carried down to the fascia over the tensor fascia shahid which was exposed and longitudinally incised. The fascia was elevated off the anterior 50% of the tensor fascia shahid muscle. Crossing branches of ascending lateral femoral circumflex vessels were isolated and ligated with suture divided. Retractor was placed anteromedial to the capsule hip abducted internally rotated and the gluteus minimus elevated off the lateral capsule. Inverted T capsulotomy was performed. We encountered a rather large ganglion cyst that was between the ilium just superior to the center of the acetabulum and the gluteus minimus which had meredith pasty material consistent with long- standing ganglion cyst and it was fairly large approximately 4 cm in spherical diameter this estimated by the volume of this pasty material we removed. We irrigated this out. The femoral head was removed. The acetabulum was exposed labrum excised. A fluoroscopic AP of the hip showed our femoral neck cut which was a few mm too long and the medial femoral neck bone was removed this time. Bone wax was used to temporarily sealed the cut surface of the femur. The leg was externally rotated extended and small portion of the lateral capsular tip was excised and conjoined tendon recessed from the saddle. This gave adequate mobility of the femur without incising between the piriformis and the conjoined tendon. The leg back in the horizontal position, the acetabulum was exposed. With fluoroscopic guidance we medialized with a 42 Reamer and reamed up to a 46. This did not quite reach the periphery of the acetabulum anteriorly and posteriorly and the 46 trial was not snug. We carefully reamed up to 47 and 48 and the 48 trial was snug with a good fit. We impacted the 48 emphasis cup which seated fully with a tight fit. Single screw was placed in the ilium. The cup was placed at 40? abduction with the anterior edge of the shell just under the anterior rim in the posterior superior part of the shell proud by about 5 or 6 mm from the acetabular rim in that location. A single screw was placed through the cup into the ilium which obtained excellent purchase and the 36 inner diameter polyethylene liner was fully seated. The leg was then externally rotated extended with the table hook exposing the proximal femur. All remnants of the bone wax were removed. We broached to a size 4 which gave complete rotational stability and greater resistance to impaction. We trialed with the -2 head initially as I felt the height of the neck cut was still probably 2 or 3 mm elevated. This gave appropriate stability and leg lengths under fluoro. However, I felt that the 1.5 head restored more appropriate offset. We countersunk the broach the other 2.5 mm trial with a 1.5 which gave appropriate stability soft tissue tension and under fluoro continue to show equal leg lengths and appropriate offset. We planed the calcar planer and using the concise gone attach the broach saw that we had complete torsional stability of the broach within the bone. The broach was removed residual medial neck bone removed and the size 4 standard Actis stem fully seated. There was a snug fit the no cracks noted. We trialed once again with the 1.5 which gave appropriate soft tissue tension and stability. The 36 mm by 1.5 ceramic head was impacted onto the clean and dry trunnion after thorough irrigation with Ancef solution hip reduced stability reconfirmed. Superior limb of the capsulotomy reapproximated with 2. Vicryl. Local anesthetic cocktail injected in the periarticular soft tissues. It is all 2 g of Ancef 1 g TXA given time wound closure. Fascia was closed with running 1. Vicryl skin closed with 2 subcutaneous Vicryl over a drain in the subcu skin closed with glue EBL was 500 cc. One hundred twenty-five given back as Cell Saver. No complications. Bone quality seemed excellent we will lower to be weight-bearing as tolerated. AM Billing Surgery - Charge Forward: Surgery Billing (Right total hip replacement)
[2025-07-29] MEDS: fentaNYL CITRATE INJ (*CRX) 100 MCG/2 ML VIAL 25 MCG IV PUSH ×2 (12:59→13:01)
[2025-07-29] MEDS: ONDANSETRON INJ 4 MG/2 ML VIAL IV PUSH (14:10)
[2025-07-29] MEDS: ACETAMINOPHEN 325 MG TABLET 650 MG PO ×3 (14:16→21:25)
[2025-07-29] MEDS: oxyCODONE HCL (*CRX) 5 MG TAB IR PO ×3 (14:16→21:25)
--- NOTE | 2025-07-29 14:39 | ADMGEN ---
This patient, Ally Santos, was admitted to [address] [facility] Surg Room 321-02. Patient/family oriented to hospital policies and general routines including ID bracelet, bed and alarms, visiting hours, pain management, procedures, bathroom and other care routines, personal items, smoking policy, room service/diet, and visiting hours. Information on how to activate the Rapid Response Team has been discussed. Patient/Family are encouraged to report perceived risks to care and to ask questions if they do not understand what they are told or what they should do. Report from Campbell in PACU.
[2025-07-29] MEDS: SENNA/DOCUSATE SODIUM TABLET 2 TAB PO (17:50)
[2025-07-29] MEDS: KETOROLAC 15 MG/ML VIAL (*BKC) IV PUSH ×2 (17:51→23:34)
[2025-07-30 03:11] VITALS: BP 105/69; PULSE 85; RESP 20; TEMP 36.7; O2SAT 100
[2025-07-30] MEDS: oxyCODONE HCL (*CRX) 5 MG TAB IR PO ×3 (05:02→13:54)
[2025-07-30] MEDS: VANCOMYCIN HCL 1,000 MG in SODIUM CHLORIDE 0.9% IV 250 ML 250 MG IVPB (05:03)
[2025-07-30] MEDS: ACETAMINOPHEN 325 MG TABLET 650 MG PO ×3 (05:03→13:54)
[2025-07-30 06:52] LABS: Hematocrit 27.4 % (37.0-47.0); Hemoglobin 9.1 g/dL (12.0-15.0); Immature Granulocyte Percent A 0.5 % (0-0.5); Lymphocytes Absolute Auto 2.86 K/mm3 (0.9-3.2); Mean Corpuscular HGB Conc 33.2 g/dl (32-36); Mean Corpuscular Hemoglobin 31.1 pg (26-34); Mean Corpuscular Volume 93.5 fl (80-100); Nucleated Red Blood Cells Absolute Auto 0.000 K/mm3 (0.0-0.012); Nucleated Red Blood Cells Perc 0.0 % (0.0-0.2); Platelet Count Result 214 k/mm3 (150-375); Red Blood Count 2.93 M/mm3 (4.2-5.4); White Blood Count 12.1 K/mm3 (4.5-10.0)
[2025-07-30 07:11] VITALS: BP 108/66; PULSE 76; RESP 18; TEMP 36.8; O2SAT 98
[2025-07-30 07:15] LABS: Anion Gap 4 mmol/L (4-12); Blood Urea Nitrogen 7 mg/dL (7-17); Calcium 8.1 mg/dL (8.4-10.2); Carbon Dioxide 28 mmol/L (22-30); Chloride 105 mmol/L (98-107); Estimated CRCL calculation 80 ml/min; Estimated Glomerular Filt Rate > 60; Glucose 94 mg/dL (65-110); Potassium 3.6 mmol/L (3.4-5.0); Sodium 137 mmol/L (137-145)
[2025-07-30] MEDS: ceFAZolin 2 GM in SODIUM CHLORIDE 0.9% IV 50 ML 100 ML IVPB (07:16)
[2025-07-30] MEDS: CELECOXIB 200 MG CAPSULE PO (09:04)
[2025-07-30] MEDS: SENNA/DOCUSATE SODIUM TABLET 2 TAB PO (09:05)
[2025-07-30] MEDS: APIXABAN 2.5 MG TABLET PO (09:06)
[2025-07-30] MEDS: CEFDINIR 300 MG CAPSULE PO (09:07)
--- NOTE | 2025-07-30 09:31 | P.PNOP_ITS ---
Progress Note: A&P Assessment and Plan (1) Status post total hip replacement, right: Code(s): Z96.641 - Presence of right artificial hip joint Status: Acute Assessment and Plan: patient is postop day 1 after right total hip replacement direct anterior approach. She was a little bit too nauseated and woozy feeling yesterday afternoon to work with therapy but she was up to the bathroom several times. This morning she was able to get up by herself with a walker and is feeling well. Her wound is dry she denies numbness or tingling has normal motor function in the right foot. She has no significant swelling about the right hip her thigh. Her vital signs have been stable. Hemoglobin today 9.1 representing acute blood loss anemia. This is very similar to the hemoglobin of 8.9 morning after her other hip replacement. I reviewed her medications with her and precautions. She feels comfortable enough to go home today. She will see us in the office in about 12 days for wound check. If she has any problems in the meantime she will call. Subjective Subjective Date/Time Seen: 07/30/25 09:31 Objective Data Vital Signs Vital Signs: Vital Signs - 24 hr 07/29/25 11:58 07/29/25 12:13 07/29/25 12:28 Temperature 36.3 C L Pulse Rate 63 77 68 Respiratory Rate 18 18 16 Blood Pressure 107/59 L 126/79 117/69 Pulse Oximetry 100 100 99 Oxygen Delivery Simple Face Mask Simple Face Mask Room Air Oxygen Flow Rate 10 10 07/29/25 12:30 07/29/25 12:45 07/29/25 13:00 Temperature Pulse Rate 76 70 71 Respiratory Rate 18 12 12 Blood Pressure 116/70 117/77 110/58 L Pulse Oximetry 100 99 99 Oxygen Delivery Room Air Room Air Room Air Oxygen Flow Rate 07/29/25 13:15 07/29/25 13:35 07/29/25 13:50 Temperature 36.4 C L 36.5 C Pulse Rate 75 68 71 Respiratory Rate 19 16 16 Blood Pressure 106/68 116/77 105/66 Pulse Oximetry 100 98 97 Oxygen Delivery Room Air Oxygen Flow Rate 07/29/25 14:20 07/29/25 15:10 07/29/25 15:20 Temperature 35.7 C L 36.6 C Pulse Rate 80 78 Respiratory Rate 14 18 Blood Pressure 115/60 114/71 Pulse Oximetry 96 98 Oxygen Delivery Room Air Oxygen Flow Rate 07/29/25 15:31 07/29/25 19:11 07/29/25 20:00 Temperature 36.8 C Pulse Rate 71 71 Respiratory Rate 20 20 Blood Pressure 100/57 L Pulse Oximetry 99 99 Oxygen Delivery Room Air Room Air Oxygen Flow Rate 07/30/25 03:11 07/30/25 07:11 Temperature 36.7 C 36.8 C Pulse Rate 85 76 Respiratory Rate 20 18 Blood Pressure 105/69 108/66 Pulse Oximetry 100 98 Oxygen Delivery Oxygen Flow Rate Intake/Output Intake/Output: Intake & Output 07/27/25 07/28/25 07/29/25 07/30/25 23:59 23:59 23:59 23:59 Intake Total 1820 1200 Balance 1820 1200 Meds/Results Medications: Active Medications Generic Name Dose Route Start Last Admin Trade Name Freq PRN Reason Stop Dose Admin Acetaminophen 650 mg 07/29/25 14:00 07/30/25 09:07 Acetaminophen 325 Mg Tablet PO 650 mg Q4H ANGELO Administration Apixaban 2.5 mg 07/30/25 09:00 07/30/25 09:06 Apixaban 2.5 Mg Tablet PO 2.5 mg Q12HR ANGELO Administration Cefdinir 300 mg 07/30/25 09:00 07/30/25 09:07 Cefdinir 300 Mg Capsule PO 300 mg Q12HR ANGELO Administration Celecoxib 200 mg 07/30/25 08:00 07/30/25 09:04 Celecoxib 200 Mg Capsule PO 200 mg DAILY@0800 ANGELO Administration Naloxone HCl 0.1 mg 07/29/25 13:26 Naloxone Hcl 0.4 Mg/Ml Vial IV PUSH Q2M PRN Opiate Reversal Ondansetron HCl 4 mg 07/29/25 13:26 07/29/25 14:10 Ondansetron Inj 4 Mg/2 Ml Vial IV PUSH 4 mg Q4H PRN Administration Nausea And Vomiting Oxycodone HCl 5 mg 07/29/25 14:00 07/30/25 09:07 Oxycodone Hcl (*Crx) 5 Mg Tab Ir PO 5 mg Q4H ANGELO Administration Oxycodone HCl 5 mg 07/29/25 13:26 Oxycodone Hcl (*Crx) 5 Mg Tab Ir PO Q4H PRN Pain Rated 7-10 Polyethylene Glycol 17 gm 07/30/25 09:00 07/30/25 09:05 Polyethylene Glycol 3350 17 Gm Powd.Pack PO 17 gm QAM ANGELO Administration Senna/Docusate Sodium 2 tab 07/29/25 17:00 07/30/25 09:05 Senna/Docusate Sodium Tablet PO 2 tab BID ANGELO Administration Radiology Results: ITS Impressions Intraoperative X-Ray 07/29/25 11:41 IMPRESSION: Fluoroscopy used during Right total hip arthroplasty. Hip X-Ray 07/29/25 12:03 IMPRESSION: 1. Expected appearance post right total hip arthroplasty. See procedure note for further detail. Labs Labs: Laboratory Results - last 24 hr 07/30/25 05:59 WBC 12.1 H RBC 2.93 L Hgb 9.1 L D Hct 27.4 L MCV 93.5 MCH 31.1 MCHC 33.2 RDW 13.3 Plt Count 214 MPV 10.9 H Immature Gran % (Auto) 0.5 Neut % (Auto) 63.2 Lymph % (Auto) 23.7 [place] % (Auto) 12.1 H Eos % (Auto) 0.1 Baso % (Auto) 0.4 Lymph # (Auto) 2.86 [place] # (Auto) 1.5 H Eos # (Auto) 0.0 Baso # (Auto) 0.1 Abs Immat Gran (auto) 0.06 H Absolute Neuts (auto) 7.7 H Absolute Nucleated RBC 0.000 Nucleated RBC % 0.0 Sodium 137 Potassium 3.6 Chloride 105 Carbon Dioxide 28 Anion Gap 4 BUN 7 D Creatinine 0.56 L Estim Creat Clear Calc 80 Estimated GFR > 60 Glucose 94 Calcium 8.1 L
[2025-07-30 11:11] VITALS: BP 105/61; PULSE 78; RESP 20; TEMP 37; O2SAT 99
== END 2025-07-30 16:20 | disposition home or self-care (01) ==
LOC: ANHSURGERY 06:18 → ANH3MEDSUR 13:29
PROVIDERS: Visit Provider Orthopaedic Surgery
PROC: (CPT 27130; principal; 2025-07-29 07:30)
DX: M16.11 Unilateral primary osteoarthritis, right hip (principal); Q65.89 Other specified congenital deformities of hip; D62 Acute posthemorrhagic anemia; Z87.891 Personal history of nicotine dependence
CPT/HCPCS: 27130; 36415; 73502; 80048; 85025; 86850; 86900; 86901; 97110; 97161; 97166; 97530; 97535; 99199; J0690; A9270; C1713; C1776; J0166; J1100; J1171; J1885; J2003; J2250; J2405; J2704; J2795; J3010; J3290; J3373; J7040; J7050; J7120